=== PATIENT | male | born 1945 | race Caucasian/White ===

== ENCOUNTER 2022-05-09 06:38 | Inpatient (IN) | payer MEDICARE ==
--- NOTE | 2022-05-09 06:52 | ED ---
General Adult HPI - General Chief complaint: Neuro Symptoms/Deficit Stated complaint: Weakness Time Seen by Provider: 05/09/22 06:41 Source: patient, EMS Mode of arrival: EMS Limitations: no limitations - History of Present Illness Initial comments: 77 year-old male patient presents to ER via EMS after having a fall at home. Upon EMS arrival they reported left sided weakness and left sided facial droop that lasted about 5 minutes. He lives alone. Patient states he went to bed around 11pm and woke some time in the night. States he hit himself in the head with his left arm and "it didn't feel like my own". He stood up to go use the bathroom took two steps and fell. States he did hit his head. States he laid on the floor for about two hours before he was able to call [address] the call himself. He denies any loss of consciousness with the fall. Denies any blurred or double vision. He does report right sided headache with pain behind his right eye. Also reports chest pain. Denies any nausea, vomiting, shortness of breath, neck, or back pain. Denies any current numbness or tingling. Patient denies any recent rash, fever, chills, cough, abdominal pain, diarrhea, constipation, dizziness, hematuria, dysuria, urinary urgency, or urinary frequency. - Related Data Allergies Allergy/AdvReac Type Severity Reaction Status Date / Time shellfish derived [Shellfish] Allergy Unknown Verified 05/09/22 06:52 Review of Systems ROS Statement: Those systems with pertinent positive or pertinent negative responses have been documented in the HPI. ROS Other: All systems not noted in ROS Statement are negative. General Exam Limitations: no limitations General appearance: alert, in no apparent distress, other (This is a well- developed, well-nourished adult male patient.) Eye exam: Present: normal appearance, PERRL, EOMI. Absent: scleral icterus, conjunctival injection, periorbital swelling ENT exam: Present: normal exam, normal oropharynx, mucous membranes moist Respiratory exam: Present: normal lung sounds bilaterally. Absent: respiratory distress, wheezes, rales, rhonchi, stridor Cardiovascular Exam: Present: regular rate, normal rhythm, normal heart sounds. Absent: systolic murmur, diastolic murmur, rubs, gallop, clicks GI/Abdominal exam: Present: soft, normal bowel sounds. Absent: distended, tenderness, guarding, rebound, rigid Extremities exam: Present: full ROM, normal capillary refill, other (Left elbow skin tear, no active bleeding. Radial pulses 2+.). Absent: normal inspection, tenderness, pedal edema, joint swelling, calf tenderness Back exam: Present: normal inspection. Absent: vertebral tenderness Neurological exam: Present: alert, oriented X3, CN II-XII intact Expanded Speech: Present: fluid speech Cranial nerves: EOM's Intact: Normal, Nystagmus: Normal, Facial Sensation: Normal Upper motor neuron: Pronator Drift: Normal Sensory exam: Upper Extremity Light Touch: Normal, UE 2 Point Discrimination: Normal, Lower Extremity Light Touch: Normal Motor strength exam: RUE: 5, LUE: 5, RLE: 5, LLE: 5 Eye Response: (4) open spontaneously Motor Response: (6) obeys commands Verbal Response: (5) oriented Psychiatric exam: Present: normal affect, normal mood Skin exam: Present: warm, dry, intact, normal color. Absent: rash Course Vital Signs 05/09/22 05/09/22 05/09/22 06:41 07:15 07:58 Temperature 97.6 F 98.2 F Pulse Rate 70 71 70 Respiratory 18 16 16 Rate Blood Pressure 127/71 133/68 145/79 O2 Sat by Pulse 94 L 98 98 Oximetry EKG Findings - EKG Comments: EKG Findings:: EKG obtained at 0702 shows ventricular paced rhythm ventricular rate is 69, QRS duration 166, QTc 464, QTC 484. Medical Decision Making - Medical Decision Making 77-year-old male patient with known end-stage renal disease with dialysis presents for evaluation after a fall at home. Did have left-sided facial droop and left-sided weakness upon EMS arrival the last approximately 5 minutes. NIH score here is 0. He is also reporting chest pain. I did speak to Dr. House neurointerventionalist, patient is not candidate for TPA. CT brain and C-spine were negative, CT angios head neck negative for any acute occlusion but did show 50% stenosis of the carotid artery. Labs reviewed and did reveal hemoglobin 10.6, BUN 36, creatinine 4.5, calcium 7.7, troponin 0.71. EKG showed ventricular paced rhythm with a rate in the 70s. Chest x-ray did show interstitial edema. He did have a small skin tear to left elbow was given tetanus vaccination. I did discuss findings and results with him. He will be admitted for evaluation of TIA and chest pain. He is agreeable with this plan. My attending is Dr. Reyes. - Lab Data Result diagrams: 05/09/22 06:47 05/09/22 06:47 Lab Results 05/09/22 05/09/22 05/09/22 Range/Units 06:47 06:47 06:47 WBC 6.4 (3.8-10.6) k/uL RBC 3.36 L (4.30-5.90) m/uL Hgb 10.6 L (13.0-17.5) gm/dL Hct 33.6 L (39.0-53.0) % MCV 100.1 H (80.0-100.0) fL MCH 31.7 (25.0-35.0) pg MCHC 31.7 (31.0-37.0) g/dL RDW 14.4 (11.5-15.5) % Plt Count 256 (150-450) k/uL MPV 7.9 Neutrophils % 81 % Lymphocytes % 6 % Monocytes % 8 % Eosinophils % 3 % Basophils % 1 % Neutrophils # 5.1 (1.3-7.7) k/uL Lymphocytes # 0.4 L (1.0-4.8) k/uL Monocytes # 0.5 (0-1.0) k/uL Eosinophils # 0.2 (0-0.7) k/uL Basophils # 0.0 (0-0.2) k/uL Hypochromasia Moderate Macrocytosis Slight PT 11.2 (9.0-12.0) sec INR 1.0 (<1.2) APTT 25.1 (22.0-30.0) sec Sodium 136 L (137-145) mmol/L Potassium 5.1 (3.5-5.1) mmol/L Chloride 96 L (98-107) mmol/L Carbon Dioxide 24 (22-30) mmol/L Anion Gap 16 mmol/L BUN 36 H (9-20) mg/dL Creatinine 4.50 H (0.66-1.25) mg/dL Est GFR (CKD-EPI)AfAm 13 (>60 ml/min/1.73 sqM) Est GFR (CKD-EPI)NonAf 12 (>60 ml/min/1.73 sqM) Glucose 114 H (74-99) mg/dL Calcium 7.7 L (8.4-10.2) mg/dL Total Bilirubin 1.0 (0.2-1.3) mg/dL AST 27 (17-59) U/L ALT 17 (4-49) U/L Alkaline Phosphatase 340 H (38-126) U/L Creatine Kinase (55-170) U/L Troponin I (0.000-0.034) ng/mL Total Protein 7.0 (6.3-8.2) g/dL Albumin 3.6 (3.5-5.0) g/dL 05/09/22 05/09/22 Range/Units 06:47 06:52 WBC (3.8-10.6) k/uL RBC (4.30-5.90) m/uL Hgb (13.0-17.5) gm/dL Hct (39.0-53.0) % MCV (80.0-100.0) fL MCH (25.0-35.0) pg MCHC (31.0-37.0) g/dL RDW (11.5-15.5) % Plt Count (150-450) k/uL MPV Neutrophils % % Lymphocytes % % Monocytes % % Eosinophils % % Basophils % % Neutrophils # (1.3-7.7) k/uL Lymphocytes # (1.0-4.8) k/uL Monocytes # (0-1.0) k/uL Eosinophils # (0-0.7) k/uL Basophils # (0-0.2) k/uL Hypochromasia Macrocytosis PT (9.0-12.0) sec INR (<1.2) APTT (22.0-30.0) sec Sodium (137-145) mmol/L Potassium (3.5-5.1) mmol/L Chloride (98-107) mmol/L Carbon Dioxide (22-30) mmol/L Anion Gap mmol/L BUN (9-20) mg/dL Creatinine (0.66-1.25) mg/dL Est GFR (CKD-EPI)AfAm (>60 ml/min/1.73 sqM) Est GFR (CKD-EPI)NonAf (>60 ml/min/1.73 sqM) Glucose (74-99) mg/dL Calcium (8.4-10.2) mg/dL Total Bilirubin (0.2-1.3) mg/dL AST (17-59) U/L ALT (4-49) U/L Alkaline Phosphatase (38-126) U/L Creatine Kinase 83 (55-170) U/L Troponin I 0.721 H* (0.000-0.034) ng/mL Total Protein (6.3-8.2) g/dL Albumin (3.5-5.0) g/dL - Radiology Data Radiology results: report reviewed, image reviewed CT head and neck angiography were obtained report was reviewed in its entirety. Impression shows atheromatous changes present, degenerative disc changes present. Stenosis of 50% diameter reduction of the proximal internal carotid artery on the right. CT brain C-spine without contrast were also obtained. Report was reviewed in its entirety. Impression by Dr. Chapa shows multilevel cervical spondylotic changes. No fracture seen. Cervical atrophy. No acute intracranial abnormality. One view x-ray of the chest was obtained. Report was reviewed in its entirety. Impression by Dr. La shows findings suggest pulmonary venous hypertension and interstitial edema. Disposition Clinical Impression: TIA (transient ischemic attack), Chest pain, Fall Disposition: ADMITTED IP TO THIS [facility] Condition: Serious Referrals: Nonstaff,Physician [Primary Care Provider] - 1-2 days Decision to Admit Reason: Admit from EC Decision Date: 05/09/22 Decision Time: 08:10
[2022-05-09 06:58] LABS: Basophils % (A) 1 %; Eosinophils # (A) 0.2 k/uL (0-0.7); Eosinophils % (A) 3 %; HCT 33.6 % (39.0-53.0); HGB 10.6 gm/dL (13.0-17.5); Hypochromasia Moderate; Lymphocytes # (A) 0.4 k/uL (1.0-4.8); Lymphocytes % (A) 6 %; MCH 31.7 pg (25.0-35.0); MCHC 31.7 g/dL (31.0-37.0); MCV 100.1 fL (80.0-100.0); Macrocytosis Slight; Mean Platelet Volume 7.9; Monocytes # (A) 0.5 k/uL (0-1.0); Monocytes % (A) 8 %; Neutrophils # (A) 5.1 k/uL (1.3-7.7); Neutrophils % (A) 81 %; Platelet Count 256 k/uL (150-450); RBC 3.36 m/uL (4.30-5.90); RDW 14.4 % (11.5-15.5); WBC 6.4 k/uL (3.8-10.6)
[2022-05-09 07:08] LABS: Partial Thromboplastin Time 25.1 sec (22.0-30.0); Prothrombin Time 11.2 sec (9.0-12.0)
[2022-05-09 07:11] LABS: Albumin 3.6 g/dL (3.5-5.0); Calcium 7.7 mg/dL (8.4-10.2)
--- NOTE | 2022-05-09 07:11 | CT ---
EXAMINATION TYPE: CT brain thea wo con DATE OF EXAM: 05/09/2022 COMPARISON: None HISTORY: Code stroke and fall CT DLP: 1512.5 mGycm Automated exposure control for dose reduction was used. There is cerebral cortical atrophy. There is no mass effect or midline shift. No sign of intracranial hemorrhage. Calvarium is intact. There is normal aeration of the mastoid sinuses. The skull base is intact. There is degenerative disc space narrowing in the mid and lower cervical spine. No compression fractu re. There is multilevel mild cervical facet arthropathy. Prevertebral soft tissues are intact. The oc cipital bone is intact. IMPRESSION: Multilevel cervical spondylotic changes. No fracture seen. Cerebral atrophy. No acute intracranial abnormality.
--- NOTE | 2022-05-09 07:11 | XR ---
EXAMINATION TYPE: XR chest 1V DATE OF EXAM: 05/09/2022 COMPARISON: NONE HISTORY: Altered mental status, code stroke TECHNIQUE: Single frontal view of the chest is obtained. FINDINGS: The heart is enlarged. There is a generator in left pectoral region, leads in right atrium and ventricle, coronary sinus. Patient is rotated. No evident pneumothorax. Perihilar vascular indis tinctness is present, interstitium is increased. There are overlying leads, patient is status post TA VR procedure. IMPRESSION: Findings suggest pulmonary venous hypertension and interstitial edema.
[2022-05-09 07:21] LABS: Potassium 5.1 mmol/L (3.5-5.1)
--- NOTE | 2022-05-09 07:58 | CT ---
EXAMINATION TYPE: CT angio head neck DATE OF EXAM: 05/09/2022 HISTORY: Neuro deficits, code stroke COMPARISON: CT brain and cervical spine 05/09/2022 CT DLP: 681.3 mGycm. Automated Exposure Control for Dose Reduction was Utilized. TECHNIQUE: CTA scan of the head and neck is performed with IV Contrast, patient injected with 65 mL of Isovue 370, axial images are obtained, coronal and sagittal reformatted images are reviewed. 3D re constructed images are created on an independent workstation and reviewed. Automated exposure control for dose reduction. FINDINGS: Carotid/Vascular Structures: Patient is post TAVR procedure. Leads are again noted within the heart. The heart is enlarged. No evident pericardial effusion. Right hilar adenopathy is present. Atheromato us changes are present within the aorta. Therefore super aortic branch vessels. Left and right subcla vian, innominate, left and right vertebral arteries, left and right common carotid arteries are paten t.11 carotid bulb show atheromatous changes. Vertebral arteries are codominant. No significant stenos is the proximal internal carotid artery in the left. Hemodynamic significant stenosis approximated ap proximately 50% diameter reduction of the proximal internal carotid artery in the right. Anterior and posterior circulation is intact. There is no evident aneurysm, dissection, stenosis, or embolus. Cerebral vascular calcifications are present. Other: Degenerative disc changes are present in the visualized spine. IMPRESSION: Atheromatous changes are present as described NASCET criteria was used in interpretation of this exam?
[2022-05-09] MEDS ORDERED: DIPH,PERTUS(ACELL)TETVAC-LF 0.5 ML VIAL IM ONE (08:06)
[2022-05-09] MEDS ORDERED: NALOXONE 0.4 MG/ML 1 ML VIAL IV PRN (08:07)
[2022-05-09] MEDS: ASPIRIN 81 MG PO SCH (12:09)
[2022-05-09] MEDS: ATORVASTATIN 40 MG TAB PO SCH (12:09)
--- NOTE | 2022-05-09 12:25 | P.CRDCN ---
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 He recently moved to [place] and has been commuting for his follow-up appointments. He presented to the emergency room after sustaining a fall. He developed severe right-sided weakness and attempted to stand. He states he fell hitting his head and chest. No changes in speech and denies any confusion. He states he has had a complete resolution of symptoms except for some residual chest wall discomfort. DIAGNOSTICS: Lab data: WBC 6.4, hemoglobin 10.6, hematocrit 33.6, platelet 256, d-dimer 6.99, sodium 136, potassium 5.1, BUN 36, creatinine 4.5, AST 27, ALT 17, ALP 340, troponin 0.7, 0.6 PAST MEDICAL HISTORY: TAVR, permanent pacemaker, end-stage renal disease, on dialysis Wednesday REVIEW OF SYSTEMS: No fever or chills. No cough or expectoration. No diaphoresis. Patient denies headache, dizziness, blurred vision, double vision. Patient denies any stomach discomfort. No nausea, vomiting. No hematochezia. No hematemesis. Denies any black stools or blood in his stools. Denies dysuria or hematuria. No muscle weakness or numbness. Positive for chest wall discomfort. PHYSICAL EXAMINATION: This is a 77-year-old male in no apparent distress at the time of my examination. HEENT: Head is atraumatic, normocephalic. Neck is supple. There is no jugular venous distention. No carotid bruit is heard. CHEST EXAMINATION: Lungs are clear to auscultation. No chest wall tenderness is noted on palpation or with deep breathing. HEART EXAMINATION: Heart regular rate and rhythm. S1, S2 heard. No murmurs, gallops or rub. ABDOMEN: Soft, nontender. Bowel sounds are heard. No organomegaly noted. EXTREMITIES: 2+ peripheral pulses with no evidence of peripheral edema and no calf tenderness noted. NEUROLOGIC EXAMINATION: Patient is awake, alert and oriented x3. FINAL ASSESSMENT AND PLAN: TIA Status post mechanical fall Chest pain, likely musculoskeletal secondary to fall Elevated troponin, likely secondary to end-stage renal disease, downtrend Elevated d-dimer History of end-stage renal disease on dialysis History of TAVR History of biventricular pacemaker PLAN: Obtain home medication regimen Recommend low-dose aspirin and start statin therapy ER physician/attending physician to address elevated d-dimer Further recommendations based on clinical course I am dictating on behalf of Dr Mehdi Dunlap's history/physical and assessment/plan. Medications and Allergies Home Medications Medication Instructions Recorded Confirmed Type No Known Home Medications 05/09/22 05/09/22 History Allergies Allergy/AdvReac Type Severity Reaction Status Date / Time shellfish derived [Shellfish] Allergy Unknown Verified 05/09/22 11:13 Physical Exam Vitals: Vital Signs Temp Pulse Resp BP Pulse Ox 05/09/22 11:56 98 F 69 16 134/69 96 05/09/22 07:58 70 16 145/79 98 05/09/22 07:15 98.2 F 71 16 133/68 98 05/09/22 06:41 97.6 F 70 18 127/71 94 L Intake and Output 05/08/22 05/09/22 05/09/22 22:59 06:59 14:59 Other: Weight 80.603 kg Results 05/09/22 06:47 05/09/22 06:47 Cardiac Enzymes 05/09/22 05/09/22 05/09/22 Range/Units 06:47 06:47 11:08 AST 27 (17-59) U/L Troponin I 0.721 H* 0.698 H* (0.000-0.034) ng/mL Coagulation 05/09/22 Range/Units 06:47 PT 11.2 (9.0-12.0) sec APTT 25.1 (22.0-30.0) sec CBC 05/09/22 Range/Units 06:47 WBC 6.4 (3.8-10.6) k/uL RBC 3.36 L (4.30-5.90) m/uL Hgb 10.6 L (13.0-17.5) gm/dL Hct 33.6 L (39.0-53.0) % Plt Count 256 (150-450) k/uL Comprehensive Metabolic Panel 05/09/22 Range/Units 06:47 Sodium 136 L (137-145) mmol/L Potassium 5.1 (3.5-5.1) mmol/L Chloride 96 L (98-107) mmol/L Carbon Dioxide 24 (22-30) mmol/L BUN 36 H (9-20) mg/dL Creatinine 4.50 H (0.66-1.25) mg/dL Glucose 114 H (74-99) mg/dL Calcium 7.7 L (8.4-10.2) mg/dL AST 27 (17-59) U/L ALT 17 (4-49) U/L Alkaline Phosphatase 340 H (38-126) U/L Total Protein 7.0 (6.3-8.2) g/dL Albumin 3.6 (3.5-5.0) g/dL Current Medications Generic Name Dose Route Start Last Admin Trade Name Freq PRN Reason Stop Dose Admin Aspirin 81 mg 05/09/22 11:00 05/09/22 12:09 Aspirin 81 Mg PO 81 mg DAILY MU Administration Atorvastatin Calcium 40 mg 05/09/22 11:15 05/09/22 12:09 Atorvastatin 40 Mg Tab PO 40 mg DAILY MU Administration Heparin Sodium (Porcine) 5,000 unit 05/09/22 16:00 Heparin Sodium,Porcine/Pf 5,000 Unit/0.5 Ml Syringe SQ Q8HR MU Morphine Sulfate 4 mg 05/09/22 08:07 Morphine Sulfate 4 Mg/Ml Syringe IV Q4HR PRN Severe Pain (Scale 7 to 10) Naloxone HCl 0.2 mg 05/09/22 08:07 Naloxone 0.4 Mg/Ml 1 Ml Vial IV Q2M PRN Opioid Reversal Intake and Output 05/08/22 05/09/22 05/09/22 22:59 06:59 14:59 Other: Weight 80.603 kg 05/09/22 06:47 05/09/22 06:47
--- NOTE | 2022-05-09 13:56 | P.NPCON ---
History of Present Illness - Reason for Consult Consult date: 05/09/22 end stage renal disease - Chief Complaint ESRD HD MWF - History of Present Illness This is a 77-year-old male with ESRD on dialysis Wednesday at the [facility] to dialysis unit. Came in because of a fall and some transient weakness in his left side. He denies any dizziness when he fell this morning. Initially felt numbness in his left hand but not in his leg. He tried to walk to the bathroom and then felt he did not lose his consciousness. Yesterday he was dialyzed it does not remember how much fluid was taken off and he felt fine after dialysis yesterday Past history significant for transaortic valve replacement, history of hypertension. Usually he is able to walk on his own without any difficulty. He does not make any urine and he has a fistula in his right upper arm Medications and Allergies Home Medications Medication Instructions Recorded Confirmed Type No Known Home Medications 05/09/22 05/09/22 History Allergies Allergy/AdvReac Type Severity Reaction Status Date / Time shellfish derived [Shellfish] Allergy Unknown Verified 05/09/22 11:13 Physical Exam Vitals: Vital Signs Temp Pulse Resp BP Pulse Ox 05/09/22 11:56 98 F 69 16 134/69 96 05/09/22 07:58 70 16 145/79 98 05/09/22 07:15 98.2 F 71 16 133/68 98 05/09/22 06:41 97.6 F 70 18 127/71 94 L Intake and Output 05/08/22 05/09/22 05/09/22 22:59 06:59 14:59 Other: Weight 80.603 kg Currently on exam he is awake alert oriented comfortable HEENT exam no JVP neck is supple no facial asymmetry Lungs clear to auscultation good air entry bilaterally Heart sounds unremarkable for any murmur rub gallop Abdomen soft nontender Extreme exam was no edema Neurologically awake alert oriented no vocal motor signs is able to move all his extremities fairly well. Results - Lab Results Most recent lab results Calcium 7.7 mg/dL (8.4-10.2) L 05/09/22 06:47 05/09/22 06:47 05/09/22 06:47 Assessment and Plan Assessment: Impression 1. ESRD on dialysis Wednesday and Wednesday at [facility] unit. Fistula right upper arm 2. Admitted with fall and possible transient weakness on the left side. CTA of the head and computed tomography scan of the brain both are normal 3. Chest x-ray is suggestive congestive heart failure but patient is stable on room air 4. Anemia hemoglobin is 10.6 at target Recommendation 1. Will maintain his dialysis schedule next dialysis will be Wednesday. 2. Cause of his fall and transient weakness possible TIA. Neurology consult pending 3. Maintain blood pressure, currently stable Page for this consultation and continued to follow
[2022-05-09] MEDS: HEPARIN SODIUM,PORCINE/PF 5,000 UNIT/0.5 ML SYRINGE SQ SCH ×2 (15:09→23:19)
[2022-05-09 16:46] LABS: Chol/HDL Ratio 2.56 Ratio; LDL Cholesterol,Calculated 65.6 mg/dL (0.0-131.0); VLDL Calculation 15.42 mg/dL (5.00-40.00)
--- NOTE | 2022-05-09 16:48 | P.CNNES ---
History of Present Illness Consult date: 05/09/22 History of Present Illness: The patient is a 77-year-old male who is seen in neurologic consultation on May 09, 2022, via teleneurology. The patient reports that he attempted to get up from bed and fell to the floor. He says that he realized there was something wrong, before he actually got out of bed, because when he turned over in bed, he hit himself in the head with his left hand. He says that his left hand felt as if there was not his. The patie nt reports that when he went to bed he felt fine. Approximately one hour after going to bed, he attempted to get up from bed and fell to the floor. He says that he hit his head. There was no loss of consciousness. The patient reports that he felt a generalized weakness and was unable to get up from the floor. He reports that he was able to use the phone however because of what he felt was changes in his vision, he had difficulty seeing the phone. He reports being unable to get a hold of his son and so he called 911. He says that he was able to speak to the pyridine operator. The patient denies a history of stroke. He reported having similar symptoms following dialysis, in the past. The patient did have dialysis during the day, yesterday. The patient reports that he did not feel any worse than usual, following this dialysis session. Workup in the emergency department included a CT scan of the brain and CT angiogram of the head and neck. There is no evidence of acute infarct or he morrhage. There is no evidence of significant stenosis or large vessel occlusion. Past Medical History Past Medical History: Dialysis Past Surgical History: Pacemaker Additional Past Surgical History / Comment(s): TAVR Medications and Allergies Home Medications Medication Instructions Recorded Confirmed Type No Known Home Medications 05/09/22 05/09/22 History Allergies Allergy/AdvReac Type Severity Reaction Status Date / Time shellfish derived [Shellfish] Allergy Unknown Verified 05/09/22 11:13 Physical Examination - Vital Signs Vital Signs: Vital Signs Temp Pulse Resp BP Pulse Ox 05/09/22 11:56 98 F 69 16 134/69 96 05/09/22 07:58 70 16 145/79 98 05/09/22 07:15 98.2 F 71 16 133/68 98 05/09/22 06:41 97.6 F 70 18 127/71 94 L Intake and Output 05/08/22 05/09/22 05/09/22 22:59 06:59 14:59 Other: Weight 80.603 kg Gen.: The patient is reclining on the gurney in the emergency department. He is well-nourished, well-developed and in no acute distress. HEENT: Head is atraumatic, normocephalic. Fundus not visualized. There is no scleral icterus. Mucous membranes are dry. Neck: Supple without carotid bruits Heart: Regular rate and rhythm Extremities: Without edema Neurological examination Mental status: The patient is awake, alert and oriented 3. His speech is clear. There is no dysarthria or aphasia. Cranial nerves: Pupils are equal at 4 mm and reactive. Visual lovelace are full to confrontation. Extraocular movements are intact. There is no nystagmus. Facial sensation is intact. There is no facial asymmetry. Hearing is grossly intact. Uvula and palate are midline. Shoulder shrug is symmetric. Tongue protrudes midline. Motor: Strength is 5/5 throughout, with the exception of mild decrease in strength in the left upper extremity Sensation: There is decreased light touch to the left upper extremity. There is extinction involving the left lower extremity, with double simultaneous stimulation. Coordination: There is a mild tremor involving the left upper extremity. There is mild ataxia with left finger to nose testing Deep tendon reflexes: 2+/4+ in the bilateral upper extremities and the left knee. Right patellar reflex 1+/4+. Plantar responses are flexor on the right and extensor on the left. Gait: Not assessed Results - Laboratory Findings CBC and BMP: 05/09/22 06:47 05/09/22 06:47 Abnormal Lab Findings: Abnormal Labs 05/09/22 05/09/22 05/09/22 06:47 06:47 06:47 RBC 3.36 L Hgb 10.6 L Hct 33.6 L MCV 100.1 H Lymphocytes # 0.4 L D-Dimer Sodium 136 L Chloride 96 L BUN 36 H Creatinine 4.50 H Glucose 114 H Calcium 7.7 L Alkaline Phosphatase 340 H Troponin I 0.721 H* 05/09/22 05/09/22 06:47 11:08 RBC Hgb Hct MCV Lymphocytes # D-Dimer 6.99 H Sodium Chloride BUN Creatinine Glucose Calcium Alkaline Phosphatase Troponin I 0.698 H* - Diagnostic Findings Comments: I personally reviewed the images of the CT scan of the brain and CT angiogram of the head and neck Assessment and Plan Assessment: 1. The patient has some neurologic findings on examination that may be consistent with a right middle cerebral artery territory, lacunar infarct-reflex asymmetry, left-sided extinction, left-sided extensor plantar response 2. End-stage renal disease Plan: 1. MRI of the brain has been ordered, the patient does have a pacemaker however, this pacemaker may be MRI compatible and should be investigated 2. Stroke workup including 2-D echocardiogram, lipid panel, hemoglobin A1c, TSH, PT, OT and speech therapy consultations 3. High-dose statin should be initiated 4. Aspirin 81 mg for further stroke prophylaxis. If MRI is positive, would consider dual antiplatelet therapy Thank you for allowing us to participate in the care of this patient Time with Patient: Greater than 30 (spent 50 minutes examining patient, reviewing labs, imaging, documentation and preparing the note)
--- NOTE | 2022-05-09 17:18 | NM ---
INDICATION: Patient age:Male; 77 years old; Reason for study: Elevate D-dimer; Chest Pain; PHH. COMPARISON: Chest x-ray 05/09/2022. TECHNIQUE: The lung perfusion portion of the study was performed after intervenous injection of 5 mCi of technetium 99 MAA (macroaggregated albumin). The ventilatory portion of the study was performed u sing 36.3 mCi of DTPA aerosol and obtaining multiple images after single breath hold. FINDING: The initial flow demonstrates homogeneous flow to the right zones. There is decreased uptake within t he left lung with preserved perfusion at the periphery . Areas of decreased perfusion not entirely co nform to segmental anatomy. Ventilation portions of the exam demonstrates patchy areas of decreased uptake bilaterally which do n ot entirely conform to segmental anatomy. IMPRESSION: Low likelihood of pulmonary embolism. Areas of decreased perfusion and ventilatory uptake likely seco ndary to pulmonary hypertension and interstitial edema seen on same-day chest x-ray.
--- NOTE | 2022-05-09 21:46 | P.HPIM ---
History of Present Illness H&P Date: 05/09/22 Chief Complaint: Fall Patient is a 77-year-old male with a known history of ESRD on hemodialysis, history of aortic valve replacement no prior history of CVA [facility] fall at home. Patient states that he suddenly developed left-sided weakness and unable to stand while he was going to his bed and suddenly fell on the ground and hit his head. Patient states that she felt like blurry vision and unable to find his phone and call EMS. Patient was on the floor for about 2 hours before he was able to call 911. Patient states that he was having chest pain after the fall. No shortness of breath.. Denied any loss of consciousness with the fall. No complaints of nausea vomiting or abdominal pain. No recent illnesses. Patient did not miss any hemodialysis. No fever no chills. No cough or sputum production. Denies any dysuria or hematuria. Chest x-ray showed findings suggest pulmonary venous hypertension and interstitial edema. CT head and cervical spine showed multilevel cervical spondylitic changes. No fracture seen. Stable atrophy. No acute intracranial abnormality. CT angiogram of the head and neck showed atheromatous changes are present. EKG showed electronic ventricular paced rhythm. Laboratory data showed WBC 6.4 hemoglobin 10.6 and platelets 256 MCV 100.1 D-dimer level is 6.99 Sodium 136 4 potassium 5.1 chloride 96 BUN 36 and creatinine 4.5 Calcium 7.7 and AST 727 ALT 17 alk phos 340 Troponin 0.721, 0.698 and 0.687 TSH level is 6.55 Review of Systems Constitutional: Patient denies any fever or chills . Generalized weakness. Abdomen: Patient denied any nausea or vomiting or abd. pain Cardiovascular: Patient denies any chest pain or short of breath no palpitations. Respiratory: patient denied any cough . no sputum production. No shortness of breath Neurologic: Patient denied any numbness or tingling headache. Musculoskeletal: Patient denies any complaints of joint swelling or deformity. Skin: Negative Psychiatric: Negative Endocrine: No heat or cold intolerance. No recent weight gain. Genitourinary: No dysuria or hematuria. All other 14 point ROS negative except the above Medications and Allergies Home Medications Medication Instructions Recorded Confirmed Type No Known Home Medications 05/09/22 05/09/22 History Allergies Allergy/AdvReac Type Severity Reaction Status Date / Time shellfish derived [Shellfish] Allergy Unknown Verified 05/09/22 11:13 Physical Exam Vitals: Vital Signs Temp Pulse Resp BP Pulse Ox 05/09/22 07:58 70 16 145/79 98 05/09/22 07:15 98.2 F 71 16 133/68 98 05/09/22 06:41 97.6 F 70 18 127/71 94 L Intake and Output 05/08/22 05/09/22 05/09/22 22:59 06:59 14:59 Other: Weight 80.603 kg PHYSICAL EXAMINATION: Patient is lying in the bed comfortably, no acute distress, awake alert and oriented.. HEENT: Normocephalic. Neck is supple. Pupils reactive. Nostrils clear. Oral cavity is moist. Neck reveals no JVD, carotid bruits, or thyromegaly. CHEST EXAMINATION: Trachea is central. Symmetrical expansion. Lung lovelace clear to auscultation and percussion. Bibasilar diminished sounds. CARDIAC: Normal S1, S2 with no gallops. No murmurs ABDOMEN: Soft. Bowel sounds present. Nontender. No organomegaly. No abdominal bruits. Extremities: reveal no edema. No clubbing or cyanosis Neurologically awake, alert, oriented x3 with well-coordinated movements. No focal deficits noted Skin: No rash or skin lesions. Psychiatric: Coperative. Nonsuicidal, Musculoskeletal: No joint swelling or deformity. Normal range of motion. Results CBC & Chem 7: 05/09/22 06:47 05/09/22 06:47 Labs: Abnormal Lab Results - Last 24 Hours (Table) 05/09/22 05/09/22 05/09/22 Range/Units 06:47 06:47 06:47 RBC 3.36 L (4.30-5.90) m/uL Hgb 10.6 L (13.0-17.5) gm/dL Hct 33.6 L (39.0-53.0) % MCV 100.1 H (80.0-100.0) fL Lymphocytes # 0.4 L (1.0-4.8) k/uL D-Dimer (<0.60) mg/L FEU Sodium 136 L (137-145) mmol/L Chloride 96 L (98-107) mmol/L BUN 36 H (9-20) mg/dL Creatinine 4.50 H (0.66-1.25) mg/dL Glucose 114 H (74-99) mg/dL Calcium 7.7 L (8.4-10.2) mg/dL Alkaline Phosphatase 340 H (38-126) U/L Troponin I 0.721 H* (0.000-0.034) ng/mL 05/09/22 Range/Units 06:47 RBC (4.30-5.90) m/uL Hgb (13.0-17.5) gm/dL Hct (39.0-53.0) % MCV (80.0-100.0) fL Lymphocytes # (1.0-4.8) k/uL D-Dimer 6.99 H (<0.60) mg/L FEU Sodium (137-145) mmol/L Chloride (98-107) mmol/L BUN (9-20) mg/dL Creatinine (0.66-1.25) mg/dL Glucose (74-99) mg/dL Calcium (8.4-10.2) mg/dL Alkaline Phosphatase (38-126) U/L Troponin I (0.000-0.034) ng/mL Thrombosis Risk Factor Assmnt - DVT/VTE Prophylaxis DVT/VTE Prophylaxis: Pharmacologic Prophylaxis ordered Assessment and Plan Assessment: Left-sided weakness and sudden fall and hit his head. No loss of consciousness. No residual weakness. Possible TIA. ESRD on hemodialysis Wednesday and Wednesday Chest pain likely musculoskeletal after fall. History of TAVR History of pacemaker placement Elevated troponin level likely secondary to ESRD Elevated D-dimer level. Likely due to ESRD. VQ scan to rule out PE. Elevated TSH level. Follow-up free T4 level. GI and DVT prophylaxis Plan: Patient admitted on telemetry monitoring. Patient had CT head and CT angiogram of the head and neck was done. No acute intracranial process noted. Continue with aspirin and statins. Patient was seen by neurology and recommended stroke work-up including MRI of the brain, 2D echocardiogram, TSH B12 folate and A1c levels. VQ scan was ordered due to elevated troponin level and chronic kidney disease. Follow-up closely. Time with Patient: Greater than 30
[2022-05-10] MEDS: MORPHINE SULFATE 4 MG/ML SYRINGE IV PRN ×2 (00:42→09:15)
[2022-05-10 07:33] LABS: Calcium 7.8 mg/dL (8.4-10.2); Potassium 5.8 mmol/L (3.5-5.1)
[2022-05-10 07:38] LABS: Basophils % (A) 1 %; Eosinophils # (A) 0.3 k/uL (0-0.7); Eosinophils % (A) 5 %; HCT 30.9 % (39.0-53.0); HGB 9.9 gm/dL (13.0-17.5); Hypochromasia Slight; Lymphocytes # (A) 0.4 k/uL (1.0-4.8); Lymphocytes % (A) 8 %; MCH 31.4 pg (25.0-35.0); MCV 98.3 fL (80.0-100.0); Mean Platelet Volume 8.9; Monocytes # (A) 0.4 k/uL (0-1.0); Monocytes % (A) 8 %; Neutrophils # (A) 3.9 k/uL (1.3-7.7); Neutrophils % (A) 75 %; Platelet Count 266 k/uL (150-450); RBC 3.14 m/uL (4.30-5.90); RDW 14.8 % (11.5-15.5); WBC 5.3 k/uL (3.8-10.6)
[2022-05-10 07:48] LABS: T4, Free (Free Thyroxine) 1.44 ng/dL (0.78-2.19)
[2022-05-10] MEDS: ATORVASTATIN 40 MG TAB PO SCH (08:59)
[2022-05-10] MEDS: HEPARIN SODIUM,PORCINE/PF 5,000 UNIT/0.5 ML SYRINGE SQ SCH ×3 (08:59→23:28)
[2022-05-10] MEDS: ASPIRIN 81 MG PO SCH (08:59)
[2022-05-10] MEDS ORDERED: ACETAMINOPHEN TAB 325 MG TAB PO PRN (09:26)
--- NOTE | 2022-05-10 09:44 | P.PN ---
Subjective Progress Note Date: 05/10/22 Principal diagnosis: This is a 77-year-old male with ESRD on dialysis Wednesday at [facility] in. He was admitted because of fall and some transient wea kness in his left side possibly TIA, one day after dialysis. There was some associated dizziness. Postdialysis on Wednesday he was asymptomatic. He is known with a transaortic valve replacement, hypertension usually able to walk. Has a fistula in his right upper arm Admission chest x-rays suggestive heart failure but patient was on room air. This morning he is on room air comfortable. Does say that his left arm be slightly weaker than the right. No headache chest pain . No double vision. Patient has not tried to walk since admission Objective - Vital Signs Vital signs: Vital Signs Temp 98.3 F 05/10/22 08:56 Pulse 70 05/10/22 08:56 Resp 18 05/10/22 08:56 BP 150/75 05/10/22 08:56 Pulse Ox 98 05/10/22 08:56 FiO2 Intake & Output 05/09/22 05/10/22 05/10/22 18:59 06:59 18:59 Intake Total 485 Output Total 1 Balance -1 485 Weight 80.603 kg Intake: Oral 485 Output: Urine 1 Other: Voiding Method Toilet # Voids 2 Exam general awake alert oriented comfortable HEENT exam no facial asymmetry noted Lungs are clear to auscultation good air entry bilaterally Heart sounds unremarkable for any murmur rub gallop Abdomen soft nontender Extremity exam was no edema Neurologically awake alert oriented. No objective signs of weakness noted - Labs CBC & Chem 7: 05/10/22 06:44 05/10/22 06:44 Labs: Abnormal Lab Results - Last 24 Hours (Table) 05/09/22 05/09/22 05/09/22 Range/Units 06:47 06:52 11:08 RBC (4.30-5.90) m/uL Hgb (13.0-17.5) gm/dL Hct (39.0-53.0) % Lymphocytes # (1.0-4.8) k/uL D-Dimer 6.99 H (<0.60) mg/L FEU Sodium (137-145) mmol/L Potassium (3.5-5.1) mmol/L Chloride (98-107) mmol/L BUN (9-20) mg/dL Creatinine (0.66-1.25) mg/dL Calcium (8.4-10.2) mg/dL Troponin I 0.698 H* (0.000-0.034) ng/mL TSH 6.550 H (0.465-4.680) mIU/L 05/09/22 05/10/22 05/10/22 Range/Units 14:17 06:44 06:44 RBC 3.14 L (4.30-5.90) m/uL Hgb 9.9 L (13.0-17.5) gm/dL Hct 30.9 L (39.0-53.0) % Lymphocytes # 0.4 L (1.0-4.8) k/uL D-Dimer (<0.60) mg/L FEU Sodium 133 L (137-145) mmol/L Potassium 5.8 H (3.5-5.1) mmol/L Chloride 95 L (98-107) mmol/L BUN 52 H (9-20) mg/dL Creatinine 6.59 H (0.66-1.25) mg/dL Calcium 7.8 L (8.4-10.2) mg/dL Troponin I 0.687 H* (0.000-0.034) ng/mL TSH (0.465-4.680) mIU/L Assessment and Plan Assessment: Impression 1. ESRD on dialysis Wednesday and Wednesday at [facility] dialysis unit. Fi stula right upper arm 2. Admitted with fall and possible transient weakness on the left side. CTA of the head and computed tomography scan of the brain both are normal 3. Chest x-ray is suggestive congestive heart failure but patient is stable on room air 4. Anemia hemoglobin is 10.6 at target. Namenda are down to 9.9 this morning. 5. Mild hyperkalemia potassium is 5.8, secondary to ESRD Recommendation 1. Will maintain his dialysis schedule next dialysis will be Wednesday. 2. Cause of his fall and transient weakness possible TIA. Neurology consult pending 3. Maintain blood pressure, currently stable 4. Lokelma 10 gm 1 dose to improve potassium
[2022-05-10] MEDS ORDERED: SODIUM ZIRCONIUM CYCLOSILICATE 10 GM PACKET PO ONE (10:00)
--- NOTE | 2022-05-10 12:38 | P.PN ---
Subjective Progress Note Date: 05/10/22 The patient is a 77-year-old male who is currently admitted to the hospital for TIA. Cardiology was consulted for abnormal troponin and chest discomfort. Troponins were downtrending and it is likely that these are elevated secondary to his end-stage renal disease. The patient was interviewed and examined lying comfortably in bed. He says he does have an ache in the chest if he twists or moves the wrong way. He is breathing well overnight. No orthopnea. No dizziness or lightheadedness. GENERAL: Well-appearing, well-nourished and in no acute distress. NECK: Supple without JVD or thyromegaly. LUNGS: Breath sounds clear to auscultation bilaterally. Respiration equal and unlabored. No wheezes, rales or rhonchi. HEART: Regular rate and rhythm. Systolic ejection murmur. No rubs or gallops. S1 and S2 heard. EXTREMITIES: Normal range of motion, no edema. No clubbing or cyanosis. Peripheral pulses intact and strong. VITALS: Blood pressure 137/74, pulse 70, respiratory rate 16, SpO2 96% on room air, temp 97.3F TELEMETRY: Paced rhythm LABS: WBC 5.3, hemoglobin 9.9, hematocrit 30.9, platelet 266, sodium 133, potassium 5.8, BUN 52, creatinine 6.59 IMPRESSION: TIA Status post mechanical fall Chest discomfort, likely musculoskeletal secondary to fall Elevated troponin, down trend, likely secondary to end-stage renal disease Elevated d-dimer History of end-stage renal disease on dialysis History of TAVR History of biventricular pacemaker PLAN: Continue aspirin and statin Outpatient follow-up with primary paint supervisor in [facility] No further recommendations from the cardiac standpoint I am dictating on behalf of Dr Mehdi Dunlap's history/physical and assessment/plan. Objective - Vital Signs Vital signs: Vital Signs Temp 97.3 F L 05/10/22 12:11 Pulse 70 05/10/22 12:11 Resp 16 05/10/22 12:11 BP 137/74 05/10/22 12:11 Pulse Ox 96 05/10/22 12:11 FiO2 Intake & Output 05/09/22 05/10/22 05/10/22 18:59 06:59 18:59 Intake Total 485 Output Total 1 Balance -1 485 Weight 80.603 kg Intake: Oral 485 Output: Urine 1 Other: Voiding Method Toilet # Voids 2 - Labs CBC & Chem 7: 05/10/22 06:44 05/10/22 06:44 Labs: Abnormal Lab Results - Last 24 Hours (Table) 05/09/22 05/09/22 05/10/22 Range/Units 06:52 14:17 06:44 RBC 3.14 L (4.30-5.90) m/uL Hgb 9.9 L (13.0-17.5) gm/dL Hct 30.9 L (39.0-53.0) % Lymphocytes # 0.4 L (1.0-4.8) k/uL Sodium (137-145) mmol/L Potassium (3.5-5.1) mmol/L Chloride (98-107) mmol/L BUN (9-20) mg/dL Creatinine (0.66-1.25) mg/dL Calcium (8.4-10.2) mg/dL Troponin I 0.687 H* (0.000-0.034) ng/mL TSH 6.550 H (0.465-4.680) mIU/L 05/10/22 Range/Units 06:44 RBC (4.30-5.90) m/uL Hgb (13.0-17.5) gm/dL Hct (39.0-53.0) % Lymphocytes # (1.0-4.8) k/uL Sodium 133 L (137-145) mmol/L Potassium 5.8 H (3.5-5.1) mmol/L Chloride 95 L (98-107) mmol/L BUN 52 H (9-20) mg/dL Creatinine 6.59 H (0.66-1.25) mg/dL Calcium 7.8 L (8.4-10.2) mg/dL Troponin I (0.000-0.034) ng/mL TSH (0.465-4.680) mIU/L
--- NOTE | 2022-05-10 16:10 | P.PN ---
Subjective Progress Note Date: 05/10/22 The patient is a 77-year-old male who is seen in neurologic follow-up on May 10, 2022, via teleneurology. The patient reports sleeping poorly. He denies having breakfast this morning. He denies changes in his symptoms. May 09, 2022 The patient reports that he attempted to get up from bed and fell to the floor. He says that he realized there was something wrong, before he actually got out of bed, because when he turned over in bed, he hit himself in the head with his left hand. He says that his left hand felt as if there was not his. The patient reports that when he went to bed he felt fine. Approximately one hour after going to bed, he attempted to get up from bed and fell to the floor. He says that he hit his head. There was no loss of consciousness. The patient rep orts that he felt a generalized weakness and was unable to get up from the floor. He reports that he was able to use the phone however because of what he felt was changes in his vision, he had difficulty seeing the phone. He reports being unable to get a hold of his son and so he called 911. He says that he was able to speak to the head kiln operator. The patient denies a history of stroke. He reported having similar symptoms following dialysis, in the past. The patient did have dialysis during the day, yesterday. The patient reports that he did not feel any worse than usual, following this dialysis session. Workup in the emergency department included a CT scan of the brain and CT angiogram of the head and neck. There is no evidence of acute infarct or hemorrhage. There is no evidence of significant stenosis or large vessel occlusion. Objective - Vital Signs Vital signs: Vital Signs Temp 98.3 F 05/10/22 08:56 Pulse 70 05/10/22 08:56 Resp 18 05/10/22 08:56 BP 150/75 05/10/22 08:56 Pulse Ox 98 05/10/22 08:56 FiO2 Intake & Output 05/09/22 05/10/22 05/10/22 18:59 06:59 18:59 Intake Total 485 Output Total 1 Balance -1 485 Weight 80.603 kg Intake: Oral 485 Output: Urine 1 Other: Voiding Method Toilet # Voids 2 - Exam Gen.: The patient is sleeping in the bed. He is easily arousable. He is in no acute distress. HEENT: Head is atraumatic, normocephalic. Fundus not visualized. There is no scleral icterus. Mucous members are moist. Neurological examination Mental status: The patient is awake, alert and oriented 3. His speech is clear. There is no dysarthria or aphasia. Cranial nerves: Pupils are equal at 4 mm and reactive. Visual lovelace are full to confrontation. Extraocular movements are intact. There is no nystagmus. Facial sensation is intact. There is no facial asymmetry. Hearing is grossly intact. Uvula and palate are midline. Shoulder shrug is symmetric. Tongue protrudes midline. Motor: Strength is 5/5 in the right upper and lower extremities. Left upper extremity strength 3-4/5. Left lower extremity strength 5/5. Sensation: There is decreased light touch to the left upper extremity. There is extinction involving the left upper and lower extremities, with double simultaneous stimulation. Coordination: There is a mild tremor involving the left upper extremity. There is mild ataxia with left finger to nose testing Deep tendon reflexes: 2+/4+ in the bilateral upper extremities and the left knee. Right patellar reflex 1+/4+. Plantar responses are flexor on the right and extensor on the left. - Labs CBC & Chem 7: 05/10/22 06:44 05/10/22 06:44 Labs: Abnormal Lab Results - Last 24 Hours (Table) 05/09/22 05/09/22 05/09/22 Range/Units 06:47 06:52 11:08 RBC (4.30-5.90) m/uL Hgb (13.0-17.5) gm/dL Hct (39.0-53.0) % Lymphocytes # (1.0-4.8) k/uL D-Dimer 6.99 H (<0.60) mg/L FEU Sodium (137-145) mmol/L Potassium (3.5-5.1) mmol/L Chloride (98-107) mmol/L BUN (9-20) mg/dL Creatinine (0.66-1.25) mg/dL Calcium (8.4-10.2) mg/dL Troponin I 0.698 H* (0.000-0.034) ng/mL TSH 6.550 H (0.465-4.680) mIU/L 05/09/22 05/10/22 05/10/22 Range/Units 14:17 06:44 06:44 RBC 3.14 L (4.30-5.90) m/uL Hgb 9.9 L (13.0-17.5) gm/dL Hct 30.9 L (39.0-53.0) % Lymphocytes # 0.4 L (1.0-4.8) k/uL D-Dimer (<0.60) mg/L FEU Sodium 133 L (137-145) mmol/L Potassium 5.8 H (3.5-5.1) mmol/L Chloride 95 L (98-107) mmol/L BUN 52 H (9-20) mg/dL Creatinine 6.59 H (0.66-1.25) mg/dL Calcium 7.8 L (8.4-10.2) mg/dL Troponin I 0.687 H* (0.000-0.034) ng/mL TSH (0.465-4.680) mIU/L Assessment and Plan Assessment: 1. The patient has some neurologic findings on examination that may be consistent with a right middle cerebral artery territory, lacunar infarct-reflex asymmetry, left-sided extinction, left-sided extensor plantar response 2. End-stage renal disease Plan: 1. MRI of the brain has been ordered, the patient does have a pacemaker however, this pacemaker may be MRI compatible and should be investigated 2. Stroke workup including 2-D echocardiogram, lipid panel, hemoglobin A1c, TSH, PT, OT and speech therapy consultations 3. High-dose statin should be initiated 4. Aspirin 81 mg for further stroke prophylaxis. If MRI is positive, would consider dual antiplatelet therapy Thank you for allowing us to participate in the care of this patient Dr. Moreno will assume neurologic coverage of this patient as of May 11, 2022 Time with Patient: Less than 30 (Spent 15 minutes examining patient, reviewing labs, imaging, documentation and preparing a note)
--- NOTE | 2022-05-11 00:16 | P.PN ---
Subjective Progress Note Date: 05/10/22 Patient is a 77-year-old male with a known history of ESRD on hemodialysis, history of aortic valve replacement no prior history of CVA presents to ER status post fall at home. Patient states that he suddenly developed left-sided weakness and unable to stand while he was going to his bed and suddenly fell on the ground and hit his head. Patient states that she felt like blurry vision and unable to find his phone and call EMS. Patient was on the floor for about 2 hours before he was able to call 911. Patient states that he was having chest pain after the fall. No shortness of breath.. Denied any loss of consciousness with the fall. No complaints of nausea vomiting or abdominal pain. No recent illnesses. Patient did not miss any hemodialysis. No fever no chills. No cough or sputum production. Denies any dysuria or hematuria. Chest x-ray showed findings suggest pulmonary venous hypertension and interstitial edema. CT head and cervical spine showed multilevel cervical spondylitic changes. No fracture seen. Stable atrophy. No acute intracranial abnormality. CT angiogram of the head and neck showed atheromatous changes are present. EKG showed electronic ventricular paced rhythm. Laboratory data showed WBC 6.4 hemoglobin 10.6 and platelets 256 MCV 100.1 D-dimer level is 6.99 Sodium 136 4 potassium 5.1 chloride 96 BUN 36 and creatinine 4.5 Calcium 7.7 and AST 727 ALT 17 alk phos 340 Troponin 0.721, 0.698 and 0.687 TSH level is 6.55 05/10/2022 Patient is currently lying bed. Awake alert and oriented x3. Still complains of aching chest pain with movement. Breathing is also stable. Troponin trending down. No nausea vomiting abdominal pain or diarrhea. No dizziness or lightheadedness. Neurology is on board and plan for MRI but could not be done due to patient being on pacemaker. 2D echocardiogram pending. Laboratory pressure WBC 5.3 hemoglobin 9.9 and platelets 266 Sodium 133 potassium 5.8 chloride 95 BUN 52 and creatinine 6.59 and calcium 7.8 and free T4 level is 1.44. Nephrology, neurology and cardiology is on board. Hemodialysis on Wednesday. Current medications reviewed. Objective - Vital Signs Vital signs: Vital Signs Temp 97.3 F L 05/10/22 12:11 Pulse 70 05/10/22 14:00 Resp 16 05/10/22 14:00 BP 137/74 05/10/22 12:11 Pulse Ox 96 05/10/22 12:11 FiO2 Intake & Output 05/09/22 05/10/22 05/10/22 18:59 06:59 18:59 Intake Total 485 Output Total 1 Balance -1 485 Weight 80.603 kg Intake: Oral 485 Output: Urine 1 Other: Voiding Method Toilet Toilet # Voids 2 - Exam PHYSICAL EXAMINATION: Patient is lying in the bed comfortably, no acute distress, awake alert and oriented.. HEENT: Normocephalic. Neck is supple. Pupils reactive. Nostrils clear. Oral cavity is moist. Neck reveals no JVD, carotid bruits, or thyromegaly. CHEST EXAMINATION: Trachea is central. Symmetrical expansion. Lung lovelace clear to auscultation and percussion. Bibasilar diminished sounds. CARDIAC: Normal S1, S2 with no gallops. No murmurs ABDOMEN: Soft. Bowel sounds present. Nontender. No organomegaly. No abdominal bruits. Extremities: reveal no edema. No clubbing or cyanosis Neurologically awake, alert, oriented x3 with well-coordinated movements. No focal deficits noted Skin: No rash or skin lesions. Psychiatric: Coperative. Nonsuicidal, Musculoskeletal: No joint swelling or deformity. Normal range of motion. - Labs CBC & Chem 7: 05/10/22 06:44 05/10/22 06:44 Labs: Abnormal Lab Results - Last 24 Hours (Table) 05/09/22 05/10/22 05/10/22 Range/Units 06:52 06:44 06:44 RBC 3.14 L (4.30-5.90) m/uL Hgb 9.9 L (13.0-17.5) gm/dL Hct 30.9 L (39.0-53.0) % Lymphocytes # 0.4 L (1.0-4.8) k/uL Sodium 133 L (137-145) mmol/L Potassium 5.8 H (3.5-5.1) mmol/L Chloride 95 L (98-107) mmol/L BUN 52 H (9-20) mg/dL Creatinine 6.59 H (0.66-1.25) mg/dL Calcium 7.8 L (8.4-10.2) mg/dL TSH 6.550 H (0.465-4.680) mIU/L Assessment and Plan Assessment: Left-sided weakness and sudden fall and hit his head. No loss of consciousness. No residual weakness. Possible TIA. r/o acute CVA ESRD on hemodialysis Wednesday and Wednesday Chest pain likely musculoskeletal after fall. History of TAVR History of pacemaker placement Elevated troponin level likely secondary to ESRD Elevated D-dimer level. Likely due to ESRD. VQ scan to rule out PE. Elevated TSH level. Follow-up free T4 level. GI and DVT prophylaxis Plan: Patient admitted on telemetry monitoring. Patient had CT head and CT angiogram of the head and neck was done. No acute intracranial process noted. Continue with aspirin and statins. Patient was seen by neurology and recommended stroke work-up including MRI of th e brain, 2D echocardiogram, TSH B12 folate and A1c levels. VQ scan was ordered due to elevated troponin level and chronic kidney disease. VQ scan showed low probability for PE. MRI of the brain could not be done due to patient being placement. Follow-up closely. Time with Patient: Greater than 30
[2022-05-11] MEDS: MORPHINE SULFATE 4 MG/ML SYRINGE IV PRN (03:46)
[2022-05-11] MEDS: ASPIRIN 81 MG PO SCH (08:39)
[2022-05-11] MEDS: HEPARIN SODIUM,PORCINE/PF 5,000 UNIT/0.5 ML SYRINGE SQ SCH ×2 (08:39→17:00)
[2022-05-11] MEDS: ATORVASTATIN 40 MG TAB PO SCH (08:39)
[2022-05-11 11:21] LABS: Basophils # (A) 0.1 k/uL (0-0.2); Basophils % (A) 1 %; Eosinophils # (A) 0.1 k/uL (0-0.7); Eosinophils % (A) 1 %; HCT 31.4 % (39.0-53.0); HGB 9.8 gm/dL (13.0-17.5); Hypochromasia Slight; Lymphocytes # (A) 0.3 k/uL (1.0-4.8); Lymphocytes % (A) 4 %; MCH 30.7 pg (25.0-35.0); MCHC 31.2 g/dL (31.0-37.0); MCV 98.3 fL (80.0-100.0); Mean Platelet Volume 8.8; Monocytes # (A) 0.6 k/uL (0-1.0); Monocytes % (A) 8 %; Neutrophils # (A) 6.5 k/uL (1.3-7.7); Neutrophils % (A) 84 %; Platelet Count 309 k/uL (150-450); RBC 3.19 m/uL (4.30-5.90); RDW 14.6 % (11.5-15.5); WBC 7.7 k/uL (3.8-10.6)
[2022-05-11 11:44] LABS: Calcium 7.6 mg/dL (8.4-10.2)
[2022-05-11 11:51] LABS: Potassium 6.4 mmol/L (3.5-5.1)
--- NOTE | 2022-05-11 13:03 | P.PN ---
Subjective Patient is seen for follow-up for end-stage renal disease maintained on Wednesday schedule at the [facility]. Patient was admitted to the hospital with history of fall. Currently seen on hemodialysis and tolerating his treatment well. No significant complaints today. Left elbow pain seems to have resolved Objective - Vital Signs Vital signs: Vital Signs Temp 97.7 F 05/11/22 11:16 Pulse 70 05/11/22 11:16 Resp 16 05/11/22 11:16 BP 159/74 05/11/22 11:16 Pulse Ox 95 05/11/22 11:16 FiO2 Intake & Output 05/10/22 05/11/22 05/11/22 18:59 06:59 18:59 Intake Total 600 Balance 600 Intake: Oral 600 Other: Voiding Method Toilet Toilet Toilet # Voids 0 - Exam Awake, comfortable, not in any acute distress Examination of the heart S1 and S2 Examination lungs bilateral breath sounds are heard Abdomen is soft nontender Examination of lower extremities shows no significant edema 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 ESRD on dialysis Wednesday and Wednesday at [facility] dialysis unit. Fistula right upper arm 2. Admitted with fall and possible transient weakness on the left side. CTA of the head and computed tomography scan of the brain both are normal 3. Chest x-ray is suggestive congestive heart failure but patient is stable on room air 4. Anemia hemoglobin is 10.6 at target. Namenda are down to 9.9 this morning. 5. Hyperkalemia associated with ESRD . Status post [facility] yesterday. Currently being dialyzed Plan: Continue Wednesday schedule for hemodialysis Encourage increased oral intake and activity
--- NOTE | 2022-05-11 14:56 | P.PN ---
Subjective Progress Note Date: 05/11/22 Patient is a 77-year-old right-handed male came to the hospital after he fell off the bed. He was going to the bathroom, when he just went down, couldn't stand up, couldn't get up. Patient has history of ESRD, on hemodialysis. Objective - Vital Signs Vital signs: Vital Signs Temp 97.7 F 05/11/22 11:16 Pulse 70 05/11/22 11:16 Resp 16 05/11/22 11:16 BP 159/74 05/11/22 11:16 Pulse Ox 95 05/11/22 11:16 FiO2 Intake & Output 05/10/22 05/11/22 05/11/22 18:59 06:59 18:59 Intake Total 600 Balance 600 Intake: Oral 600 Other: Voiding Method Toilet Toilet Toilet # Voids 0 - Exam Patient is an elderly male, in no distress. Patient is keeping his eyes closed, but does wake up on calling his name and answers appropriately. He knows it is April and the year is , and that he is in the hospital on the step of the name. He thinks he is in [facility]. He knows name of the current president. Speech and language functions are normal. Patient can name and repeat very well. No aphasia or dysarthria. Attention, concentration and fund of knowledge is adequate. On cranial nerve examination, pupils are equal, round and reacting to light, visual lovelace reveal left homonymous hemianopia. Extraocular muscles are intact with no nystagmus. He has slight decrease gaze on the left, but does come to the left. Face is symmetric, tongue protrudes to the midline. Palatal elevation and sensation normal, hearing and shoulder shrug normal, facial sensation normal. On muscle strength testing, there is mild left pronation, but no drift. He has some myoclonic jerking of his left arm with outstretched hands. Muscle strength showed patient has chronically weak right shoulder. The biceps and triceps are equal bilaterally, guest services officer is slightly decreased 5-only on the left. Normal on the right. Hip flexion is 4, ankles 5 bilaterally. Deep tendon reflexes are symmetric 1-1+. Patient has Babinski on the left side. Sensory to touch is equal. He is occasionally detects left side on double simultaneous stimulation. Cerebellar function showed no ataxia for [id number] testing on the right. He has significant past pointing on the left hand for testing the finger, but was able to touch the nose without difficulty. This is likely due to left homonymous hemianopia. Tone and bulk of muscles normal. Gait deferred.. On general examination, there is no carotid bruit or murmur, S1-S2 audible. Chest is clear on consultation. Abdomen is soft nontender. No organomegaly, bowel sounds present. Peripheral pulses are not clearly present. Mild peripheral edema. - Labs CBC & Chem 7: 05/11/22 10:00 05/11/22 10:00 Labs: Abnormal Lab Results - Last 24 Hours (Table) 05/11/22 05/11/22 Range/Units 10: 10:00 RBC 3.19 L (4.30-5.90) m/uL Hgb 9.8 L (13.0-17.5) gm/dL Hct 31.4 L (39.0-53.0) % Lymphocytes # 0.3 L (1.0-4.8) k/uL Sodium 129 L (137-145) mmol/L Potassium 6.4 H* (3.5-5.1) mmol/L Chloride 91 L (98-107) mmol/L Carbon Dioxide 19 L (22-30) mmol/L BUN 68 H (9-20) mg/dL Creatinine 7.94 H* (0.66-1.25) mg/dL Glucose 104 H (74-99) mg/dL Calcium 7.6 L (8.4-10.2) mg/dL Assessment and Plan Assessment: 1. Probable acute ischemic stroke with left homonymous hemianopia and very mild left-sided deficits 2. End-stage renal disease, on hemodialysis for last 3 years 3. Pacemaker 4. History of TAVR, October 2021. Patient was prescribed some blood thinners after TAVR, which after he ran out, didn't renew the medication, as he used to bleed a lot after hemodialysis, as per his statement. 5. Hypertension 6. X tobacco use. Patient smoked 1 pack per day for 20 years, quit 45 years ago. Plan: 1. MRI of the brain cannot be performed because patient has pacemaker. Agree with checking repeat CT head. 2. 2-D echocardiogram completed, but the results still pending 2. Hemoglobin A1c 5.5, TSH 6.55 mildly elevated, will defer to IM. 3. PT, OT and speech therapy consultations 3. Lipid panel with cholesterol 133, LDL 65, HDL 52 and triglycerides 77. Continue Lipitor 40 mg daily. 4. Aspirin 81 mg for further stroke prophylaxis has been initiated. If repeat CT/MRI is positive, would consider dual antiplatelet therapy. Patient states that he was not taking any antiplatelet medication at home.
--- NOTE | 2022-05-11 16:01 | CT ---
EXAMINATION TYPE: CT brain wo con DATE OF EXAM: 05/11/2022 HISTORY: f/u TIA CT DLP: 1231.4 mGycm. Automated Exposure Control for Dose Reduction was Utilized. TECHNIQUE: CT scan of the head is performed without contrast. COMPARISON: CT Brain Without 2 days ago. FINDINGS: There is no acute intracranial hemorrhage or midline shift identified. There is moderate diffuse ventricular and sulcal prominence consistent with diffuse age-related cerebral atrophy. Hyde- white matter differentiation is fairly well maintained. Nasal septum redemonstrated deviated to righ t of midline. The globes are intact and the visualized sinuses are clear. IMPRESSION: No acute intracranial hemorrhage or midline shift. There is moderate diffuse age-relate d cerebral atrophy redemonstrated. No significant change from prior CT.
--- NOTE | 2022-05-11 17:39 | CA ---
Transthoracic Echo Report Name: Reg Juares Age: 77 Gender: M : 1945 Exam Date: 05/11/2022 09:06 Exam Location: [place] [facility] Ht (in): 70 Wt (lb): 177 Ordering Physician: Sanaz Shaffer DO Attending/Referring Phys: Date Pitter Aniya Banuelos RDCS Procedure CPT: Indications: CVA Cardiac Hx: Technical Quality: Fair Contrast 1: Total Dose (mL): Contrast 2: Total Dose (mL): MEASUREMENTS (Male / Female) Normal Values 2D ECHO LV Diastolic Diameter PLAX 4.9 cm 4.2 - 5.9 / 3.9 - 5.3 cm LV Systolic Diameter PLAX 4.5 cm IVS Diastolic Thickness 1.4 cm 0.6 - 1.0 / 0.6 - 0.9 cm LVPW Diastolic Thickness 1.6 cm 0.6 - 1.0 / 0.6 - 0.9 cm LV Relative Wall Thickness 0.6 RV Internal Dim ED PLAX 5.5 cm LA Volume 97.2 cm??? 18 - 58 / 22 - 52 cm??? M-MODE Aortic Root Diameter MM 3.2 cm LA Systolic Diameter MM 5.6 cm LA Ao Ratio MM 1.8 DOPPLER AV Peak Velocity 252.1 cm/s AV Peak Gradient 25.4 mmHg AV Mean Velocity 156.5 cm/s AV Mean Gradient 11.5 mmHg AV Velocity Time Integral 38.1 cm LVOT Peak Velocity 66.8 cm/s LVOT Peak Gradient 1.8 mmHg MV Area PHT 4.2 cm??? Mitral E Point Velocity 123.9 cm/s Mitral A Point Velocity 82.0 cm/s Mitral E to A Ratio 1.5 MV Deceleration Time 179.9 ms TR Peak Velocity 413.6 cm/s TR Peak Gradient 68.4 mmHg Right Ventricular Systolic Press 56.1 mmHg FINDINGS Left Ventricle Mildly increased septal wall thickness. Moderately reduced global left ventricular systolic function. Left ventricular ejection fraction is estimated at 30-35 %. Right Ventricle Severe right ventricular dilatation. Severe pulmonary hypertension. Right Atrium Moderate right atrial dilatation. Catheter/pacemaker wire in the right atrial cavity. Left Atrium Severe left atrial dilatation. Mitral Valve Moderate mitral regurgitation. Moderate mitral annular calcification. Mitral valve thickened. Aortic Valve Normally functioning bioprosthetic aortic valve without stenosis with a peak velocity of 2.5 m/s, peak gradient 25 mmHg, mean gradient 12 mmHg. S/P TAVR. Tricuspid Valve Severe tricuspid regurgitation. Pulmonic Valve Trace pulmonic regurgitation. Pericardium No pericardial effusion. Aorta Normal size aortic root and proximal ascending aorta. CONCLUSIONS Technically somewhat difficult study. Janna LV size is at upper limits of normal with concentric LVH and global decrease in contractility estimated ejection fraction about 30-35%. Patient appears to be in atrial fibrillation. There is mitral annular calcification with moderate eccentric mitral regurgitation. Aortic valve bioprosthesis apparently patient had a percutaneous impart mild increase in gradient of about 25 mmHg peak gradient no pericardial effusion Previewed by: Dr. Lior Roldan MD (Electronically Signed) Final Date: 11 May 2022 17:38
[2022-05-12] MEDS: HEPARIN SODIUM,PORCINE/PF 5,000 UNIT/0.5 ML SYRINGE SQ SCH ×3 (00:13→17:33)
[2022-05-12] MEDS: MORPHINE SULFATE 4 MG/ML SYRINGE IV PRN ×3 (00:13→20:43)
--- NOTE | 2022-05-12 01:56 | P.PN ---
Subjective Progress Note Date: 05/11/22 Patient is a 77-year-old male with a known history of ESRD on hemodialysis, history of aortic valve replacement no prior history of CVA presents to ER status post fall at home. Patient states that he suddenly developed left-sided weakness and unable to stand while he was going to his bed and suddenly fell on the ground and hit his head. Patient states that she felt like blurry vision and unable to find his phone and call EMS. Patient was on the floor for about 2 hours before he was able to call 911. Patient states that he was having chest pain after the fall. No shortness of breath.. Denied any loss of consciousness with the fall. No complaints of nausea vomiting or abdominal pain. No recent illnesses. Patient did not miss any hemodialysis. No fever no chills. No cough or sputum production. Denies any dysuria or hematuria. Chest x-ray showed findings suggest pulmonary venous hypertension and interstitial edema. CT head and cervical spine showed multilevel cervical spondylitic changes. No fracture seen. Stable atrophy. No acute intracranial abnormality. CT angiogram of the head and neck showed atheromatous changes are present. EKG showed electronic ventricular paced rhythm. Laboratory data showed WBC 6.4 hemoglobin 10.6 and platelets 256 MCV 100.1 D-dimer level is 6.99 Sodium 136 4 potassium 5.1 chloride 96 BUN 36 and creatinine 4.5 Calcium 7.7 and AST 727 ALT 17 alk phos 340 Troponin 0.721, 0.698 and 0.687 TSH level is 6.55 05/10/2022 Patient is currently lying bed. Awake alert and oriented x3. Still complains of aching chest pain with movement. Breathing is also stable. Troponin trending down. No nausea vomiting abdominal pain or diarrhea. No dizziness or lightheadedness. Neurology is on board and plan for MRI but could not be done due to patient giovanni arizmendi on pacemaker. 2D echocardiogram pending. Laboratory pressure WBC 5.3 hemoglobin 9.9 and platelets 266 Sodium 133 potassium 5.8 chloride 95 BUN 52 and creatinine 6.59 and calcium 7.8 and free T4 level is 1.44. Nephrology, neurology and cardiology is on board. Hemodialysis on Wednesday. Current medications reviewed. 05/11/2022 Patient is seen and evaluated in follow-up this morning currently awaiting MRI and questionable is pacer safe for MRI otherwise reordering CT of the brain. Patient did have low-grade temps today per nursing staff. Patient is end-stage renal disease maintained on hemodialysis with nephrology following. Currently awaiting 2-D echo along with a.m. labs. Patient reports having some deficits with the upper extremities and continues to feel weak. Patient did have low g rade 100.1 and denies any chest pain or shortness of breath. Patient denies nausea or vomiting and tolerating diet. PT/OT evaluation. Review of systems: Constitutional: No reports of fatigue, fever, or chills Cardiovascular: No reports of chest pain or palpitations Respiratory: No reports of shortness of breath or cough GI: No reports of nausea, vomiting, or diarrhea : No reports of dysuria or retention Neurovascular: reports of some upper extremity weakness and some visual disturbance All medications have been reviewed Active Medications Acetaminophen (Acetaminophen Tab 325 Mg Tab) 325 mg PO Q6HR PRN PRN Reason: Fever and/ or Pain Aspirin (Aspirin 81 Mg) 81 mg PO DAILY [facility] Last Admin: 05/11/22 08:39 Dose: 81 mg Atorvastatin Calcium (Atorvastatin 40 Mg Tab) 40 mg PO DAILY [facility] Last Admin: 05/11/22 08:39 Dose: 40 mg Heparin Sodium (Porcine) (Heparin Sodium,Porcine/Pf 5,000 Unit/0.5 Ml Syringe) 5,000 unit SQ Q8HR [facility] Last Admin: 05/11/22 08:39 Dose: 5,000 unit Morphine Sulfate (Morphine Sulfate 4 Mg/Ml Syringe) 4 mg IV Q4HR PRN PRN Reason: Severe Pain (Scale 7 to 10) Last Admin: 05/11/22 03:46 Dose: 4 mg Naloxone HCl (Naloxone 0.4 Mg/Ml 1 Ml Vial) 0.2 mg IV Q2M PRN PRN Reason: Opioid Reversal Physical exam: Patient is lying in the bed, awake alert and oriented.. well developed, well nourished HEENT: Normocephalic. Neck is supple. Pupils reactive. Nostrils clear. Oral cavity is moist. Neck reveals no JVD, carotid bruits, or thyromegaly. CHEST EXAMINATION: Trachea is central. Symmetrical expansion. Bibasilar dimini shed sounds. CARDIAC: S1, S2 muffled ABDOMEN: Soft. Bowel sounds present. Nontender. No organomegaly. No abdominal bruits. Extremities: reveal no edema. No clubbing or cyanosis Neurologically awake, alert, oriented x3 with well-coordinated movements. No focal deficits noted Skin: No rash or skin lesions. Psychiatric: Cooperative. Non-suicidal, Musculoskeletal: No joint swelling or deformity. Normal range of motion. Assessment: Left-sided weakness and sudden fall and hit his head. No loss of consciousness. No residual weakness. Possible TIA. r/o acute CVA ESRD on hemodialysis Wednesday and Wednesday Chest pain likely musculoskeletal after fall. History of TAVR History of pacemaker placement Elevated troponin level likely secondary to ESRD Elevated D-dimer level. Likely due to ESRD. VQ scan to rule out PE. Elevated TSH level. GI and DVT prophylaxis Full code Plan: Patient admitted on telemetry monitoring. Patient had CT head and CT angiogram of the head and neck was done. No acute intracranial process noted. Continue with aspirin and statins. Patient was seen by neurology and recommended stroke work-up including MRI of the brain, 2D echocardiogram, TSH B12 folate and A1c levels. MRI unable due to pacemaker and repeat ct brain ordered and pending. VQ scan was ordered due to elevated troponin level and chronic kidney disease. VQ scan showed low probability for PE. Will discuss further with neurology about treatment plan. Possible discharge in 24-48 hours. Due to multiple complex medical issues, prognosis is guarded. The impression and plan of care has been dictated by Marta Nunn, Nurse Practitioner as directed. Dr. Rashawn MD I have performed a history and examination and MDM of this patient, discussed the same with the dictator, and agree with the dictator's assessment and plan as written ,documented as a scribe. Based on total visit time, I have performed more than 50% of the visit. Objective - Vital Signs Vital signs: Vital Signs Temp 98.0 F 05/11/22 16:45 Pulse 70 05/11/22 16:45 Resp 19 05/11/22 16:45 BP 148/73 05/11/22 16:45 Pulse Ox 95 05/11/22 11:16 FiO2 Intake & Output 05/10/22 05/11/22 05/11/22 18:59 06:59 18:59 Intake Total 600 300 Output Total 2500 Balance 600 -2200 Intake: Oral 600 Hemodialysis 300 Output: Hemodialysis 2500 Other: Voiding Method Toilet Toilet Toilet # Voids 0 - Labs CBC & Chem 7: 10/17/22 10:00 05/11/22 10:00 Labs: Abnormal Lab Results - Last 24 Hours (Table) 05/11/22 05/11/22 Range/Units 10:00 10:00 RBC 3.19 L (4.30-5.90) m/uL Hgb 9.8 L (13.0-17.5) gm/dL Hct 31.4 L (39.0-53.0) % Lymphocytes # 0.3 L (1.0-4.8) k/uL Sodium 129 L (137-145) mmol/L Potassium 6.4 H* (3.5-5.1) mmol/L Chloride 91 L (98-107) mmol/L Carbon Dioxide 19 L (22-30) mmol/L BUN 68 H (9-20) mg/dL Creatinine 7.94 H* (0.66-1.25) mg/dL Glucose 104 H (74-99) mg/dL Calcium 7.6 L (8.4-10.2) mg/dL
[2022-05-12] MEDS: ATORVASTATIN 40 MG TAB PO SCH (08:18)
[2022-05-12] MEDS: ASPIRIN 81 MG PO SCH (08:18)
[2022-05-12 08:46] LABS: Calcium 7.8 mg/dL (8.4-10.2); Potassium 5.8 mmol/L (3.5-5.1)
[2022-05-12] MEDS: CLOPIDOGREL 75 MG TAB PO SCH (10:09)
--- NOTE | 2022-05-12 11:41 | P.PN ---
Subjective Patient is seen for follow-up for end-stage renal disease maintained on Wednesday schedule at the [facility] unit. Patient was admitted to the hospital with history of fall. Tolerated hemodialysis well No significant complaints today. Objective - Vital Signs Vital signs: Vital Signs Temp 98.9 F 05/12/22 08:13 Pulse 70 05/12/22 08:13 Resp 16 05/12/22 08:13 BP 120/59 05/12/22 08:13 Pulse Ox 95 05/12/22 08:13 FiO2 Intake & Output 05/11/22 05/12/22 05/12/22 18:59 06:59 18:59 Intake Total 300 Output Total 2500 Balance -2200 Intake: Hemodialysis 300 Output: Hemodialysis 2500 Other: Voiding Method Toilet Toilet Toilet # Voids 0 - Exam Awake, comfortable, not in any acute distress Examination of the heart S1 and S2 Examination lungs bilateral breath sounds are heard Abdomen is soft nontender Examination of lower extremities shows no significant edema FILE KEEPER exam grossly intact - Labs CBC & Chem 7: 05/11/22 10:00 05/12/22 08:16 Labs: Abnormal Lab Results - Last 24 Hours (Table) 05/11/22 05/12/22 Range/Units 10:00 08:16 Sodium 129 L 132 L (137-145) mmol/L Potassium 6.4 H* 5.8 H (3.5-5.1) mmol/L Chloride 91 L 93 L (98-107) mmol/L Carbon Dioxide 19 L 19 L (22-30) mmol/L BUN 68 H 55 H (9-20) mg/dL Creatinine 7.94 H* 7.15 H* (0.66-1.25) mg/dL Glucose 104 H (74-99) mg/dL Calcium 7.6 L 7.8 L (8.4-10.2) mg/dL Assessment and Plan Assessment: 1. ESRD on dialysis Wednesday and Wednesday at [facility] dialysis unit. Fistula right upper arm 2. Admitted with fall and possible transient weakness on the left side. CTA of the head and computed tomography scan of the brain both are normal 3. Chest x-ray is suggestive congestive heart failure but patient is stable on room air 4. Anemia hemoglobin is 10.6 at target. 9.8 on 05/11/2022 5. Hyperkalemia associated with ESRD. Potassium has been staying high. I will repeat her dose of lokelma and we will arrange for hemodialysis in a.m. Plan: lokelma by mouth 1 Hemodialysis in a.m. Physical therapy
[2022-05-12] MEDS ORDERED: SODIUM ZIRCONIUM CYCLOSILICATE 10 GM PACKET PO ONE (11:42)
[2022-05-12] MEDS: HYDROCORTISONE 1% CREAM 454 GM JAR TOPICAL SCH ×2 (17:34→20:40)
[2022-05-13] MEDS: HYDROCORTISONE 1% CREAM 454 GM JAR TOPICAL SCH ×5 (00:20→20:37)
[2022-05-13] MEDS: HEPARIN SODIUM,PORCINE/PF 5,000 UNIT/0.5 ML SYRINGE SQ SCH ×4 (01:59→23:35)
--- NOTE | 2022-05-13 05:29 | P.PN ---
Subjective Progress Note Date: 05/12/22 Patient is a 77-year-old male with a known history of ESRD on hemodialysis, history of aortic valve replacement no prior history of CVA presents to ER status post fall at home. Patient states that he suddenly developed left-sided weakness and unable to stand while he was going to his bed and suddenly fell on the ground and hit his head. Patient states that she felt like blurry vision and unable to find his phone and call EMS. Patient was on the floor for about 2 hours before he was able to call 911. Patient states that he was having chest pain after the fall. No shortness of breath.. Denied any loss of consciousness with the fall. No complaints of nausea vomiting or abdominal pain. No recent illnesses. Patient did not miss any hemodialysis. No fever no chills. No cough or sputum production. Denies any dysuria or hematuria. Chest x-ray showed findings suggest pulmonary venous hypertension and interstitial edema. CT head and cervical spine showed multilevel cervical spondylitic changes. No fracture seen. Stable atrophy. No acute intracranial abnormality. CT angiogram of the head and neck showed atheromatous changes are present. EKG showed electronic ventricular paced rhythm. Laboratory data showed WBC 6.4 hemoglobin 10.6 and platelets 256 MCV 100.1 D-dimer level is 6.99 Sodium 136 4 potassium 5.1 chloride 96 BUN 36 and creatinine 4.5 Calcium 7.7 and AST 727 ALT 17 alk phos 340 Troponin 0.721, 0.698 and 0.687 TSH level is 6.55 05/10/2022 Patient is currently lying bed. Awake alert and oriented x3. Still complains of aching chest pain with movement. Breathing is also stable. Troponin trending down. No nausea vomiting abdominal pain or diarrhea. No dizziness or lightheadedness. Neurology is on board and plan for MRI but could not be done due to patient giovanni arizmendi on pacemaker. 2D echocardiogram pending. Laboratory pressure WBC 5.3 hemoglobin 9.9 and platelets 266 Sodium 133 potassium 5.8 chloride 95 BUN 52 and creatinine 6.59 and calcium 7.8 and free T4 level is 1.44. Nephrology, neurology and cardiology is on board. Hemodialysis on Wednesday. Current medications reviewed. 05/11/2022 Patient is seen and evaluated in follow-up this morning currently awaiting MRI and questionable is pacer safe for MRI otherwise reordering CT of the brain. Patient did have low-grade temps today per nursing staff. Patient is end-stage renal disease maintained on hemodialysis with nephrology following. Currently awaiting 2-D echo along with a.m. labs. Patient reports having some deficits with the upper extremities and continues to feel weak. Patient did have low g rade 100.1 and denies any chest pain or shortness of breath. Patient denies nausea or vomiting and tolerating diet. PT/OT evaluation. 05/12/2022 Patient seen today and is post ct brain which shows some vague hypodensity right temporal occipital region that could reflect an evolving infarct. Patient is maintained on hemodialysis. Patient continues with significant weakness and reports he is unstable to walk. PT/OT following and recommend ecf for rehab. Patient is agreeable. Case management following and working on possible ECF. Patient is afebrile and denies chest pain or shortness of breath. No reports of nausea or vomiting and tolerating diet. Potassium is elevated today and given a dose of lokelma with hemodialysis scheduled for am. Review of systems: Constitutional: No reports of fatigue, fever, or chills Cardiovascular: No reports of chest pain or palpitations Respiratory: No reports of shortness of breath or cough GI: No reports of nausea, vomiting, or diarrhea : No reports of dysuria or retention Neurovascular: reports of some weakness and inability to walk steadily All medications have been reviewed Physical exam: Patient is lying in the bed, awake alert and oriented.. well developed, well nourished HEENT: Normocephalic. Neck is supple. Pupils reactive. Nostrils clear. Oral cavity is moist. Neck reveals no JVD, carotid bruits, or thyromegaly. CHEST EXAMINATION: Trachea is central. Symmetrical expansion. Bibasilar diminished sounds. CARDIAC: S1, S2 muffled ABDOMEN: Soft. Bowel sounds present. Nontender. No organomegaly. No abdominal bruits. Extremities: reveal no edema. No clubbing or cyanosis Neurologically awake, alert, oriented x3 with well-coordinated movements. No focal deficits noted Skin: No rash or skin lesions. Psychiatric: Cooperative. Non-suicidal, Musculoskeletal: No joint swelling or deformity. Normal range of motion. Assessment: Left-sided weakness and sudden fall and hit his head. No loss of consciousness. No residual weakness. LIkely acute CVA right temporal occipital region as noted on repeat CT 05-11-2022 ESRD on hemodialysis Wednesday and Wednesday Chest pain likely musculoskeletal after fall. History of TAVR History of pacemaker placement Elevated troponin level likely secondary to ESRD Elevated D-dimer level. Likely due to ESRD. VQ scan shows low probability of PE. Elevated TSH level. GI and DVT prophylaxis Full code Plan: Patient admitted on telemetry monitoring. Patient had CT head and CT angiogram of the head and neck was done. No acute intracranial process noted initially. Unable to have MRI due to pacemaker and repeat CT brain done on 05-11 which is suggestive of right temporal occipital region evolving infarct . Continue with statins. Neurology following. Will discuss further with neurology about treatment plan. Case management following and working on possible ecf Potassium elevated today and given a dose of lokelma and scheduled for hemodialysis in am. Possible discharge in 24-48 hours. Due to multiple complex medical issues, prognosis is guarded. The impression and plan of care has been dictated by Marta Nunn, Nurse Practitioner as directed. Dr. Rashawn MD I have performed a history and examination and MDM of this patient, discussed the same with the dictator, and agree with the dictator's assessment and plan as written ,documented as a scribe. Based on total visit time, I have performed more than 50% of the visit. Objective - Vital Signs Vital signs: Vital Signs Temp 98.1 F 05/12/22 12:00 Pulse 70 05/12/22 12:00 Resp 16 05/12/22 12:00 BP 131/62 05/12/22 12:00 Pulse Ox 96 05/12/22 12:00 FiO2 Intake & Output 05/11/22 05/12/22 05/12/22 18:59 06:59 18:59 Intake Total 300 Output Total 2500 Balance -2200 Intake: Hemodialysis 300 Output: Hemodialysis 2500 Other: Voiding Method Toilet Toilet Toilet # Voids 0 - Labs CBC & Chem 7: 05/11/22 10:00 05/12/22 08:16 Labs: Abnormal Lab Results - Last 24 Hours (Table) 05/12/22 Range/Units 08:16 Sodium 132 L (137-145) mmol/L Potassium 5.8 H (3.5-5.1) mmol/L Chloride 93 L (98-107) mmol/L Carbon Dioxide 19 L (22-30) mmol/L BUN 55 H (9-20) mg/dL Creatinine 7.15 H* (0.66-1.25) mg/dL Calcium 7.8 L (8.4-10.2) mg/dL
[2022-05-13] MEDS: ASPIRIN 81 MG PO SCH (08:14)
[2022-05-13] MEDS: CLOPIDOGREL 75 MG TAB PO SCH (08:14)
[2022-05-13] MEDS: ATORVASTATIN 40 MG TAB PO SCH (08:14)
--- NOTE | 2022-05-13 09:31 | P.PN ---
Subjective Progress Note Date: 05/12/22 Patient is a 77-year-old right-handed male came to the hospital after he fell off the bed. He was going to the bathroom, when he just went down, couldn't stand up, couldn't get up. Patient's was also present today. Patient tells me that on the day of admission he woke up with stroke symptoms. When he lifted his arm, he hit his head with his hand. He touches left arm and felt "it was not mine". He grabbed his left-hand fingers with his right hand, and squeezes it and felt it was someone else's fingers. He got up and tried to go to the bathroom and he went down, as he had no feeling in the left leg. He was not a candidate for TPA as he came outside the window for TPA. Patient states that he has history of gout or rheumatoid arthritis. He has migratory arthritis. Sometimes involves the right knee joint sometimes the left. At present his left knee is swollen, hot and it hurts. He also has history of rash since he has been getting hemodialysis in the last 3 years. The rash comes and goes, clears up and then comes back. Patient has history of ESRD, on hemodialysis for last 3 years. Telemetry monitoring showing V-paced rhythm, with underlying atrial flutter. PVCs. Objective - Vital Signs Vital signs: Vital Signs Temp 98.1 F 05/12/22 12:00 Pulse 70 05/12/22 14:00 Resp 16 05/12/22 14:00 BP 131/62 05/12/22 12:00 Pulse Ox 96 05/12/22 12:00 FiO2 Intake & Output 05/11/22 05/12/22 05/12/22 18:59 06:59 18:59 Intake Total 300 Output Total 2500 Balance -2200 Intake: Hemodialysis 300 Output: Hemodialysis 2500 Other: Voiding Method Toilet Toilet Toilet # Voids 0 - Exam Patient is an elderly male, in no distress. Patient is sitting on the side of the bed. Patient is much more alert and awake. He knows it is April 2022. Is fully oriented. Speech and language functions are normal. Patient can name and repeat very well. No aphasia or dysarthria. Attention, concentration and fund of knowledge is adequate. On cranial nerve examination, pupils are equal, round and reacting to light, visual lovelace reveal left homonymous hemianopia. Extraocular muscles are int act with no nystagmus. He has slight decrease gaze on the left, but does come to the left. Face is symmetric, tongue protrudes to the midline. Palatal elevation and sensation normal, hearing and shoulder shrug normal, facial sensation normal. On muscle strength testing, there is left pronation, but no drift. He has some myoclonic jerking of his left arm with outstretched hands, better than yesterday. Muscle strength showed patient has chronically weak right shoulder. 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 Normal on the right. Hip flexion is 4, ankles 5 bilaterally. Deep tendon reflexes are symmetric 1-1+. Patient has Babinski on the left side. Sensory to touch is equal. No neglect on double simultaneous stimulation. Cerebellar function showed no ataxia for [id number] testing on the right. He has significant past pointing on the left hand for testing the finger, but was able to touch the nose without difficulty. This is likely due to left homonymous hemianopia. Tone and bulk of muscles normal. Gait deferred.. On general examination, there is no carotid bruit or murmur, S1-S2 audible. Chest is clear on consultation. Abdomen is soft nontender. No organomegaly, bowel sounds present. Peripheral pulses are not clearly present. Mild peripheral edema. Patient has significant rash on his body. - Labs CBC & Chem 7: 05/11/22 10:00 05/12/22 08:16 Labs: Abnormal Lab Results - Last 24 Hours (Table) 05/12/22 Range/Units 08:16 Sodium 132 L (137-145) mmol/L Potassium 5.8 H (3.5-5.1) mmol/L Chloride 93 L (98-107) mmol/L Carbon Dioxide 19 L (22-30) mmol/L BUN 55 H (9-20) mg/dL Creatinine 7.15 H* (0.66-1.25) mg/dL Calcium 7.8 L (8.4-10.2) mg/dL Assessment and Plan Assessment: 1. Acute ischemic stroke involving right temporal occipital region with left homonymous hemianopia and very mild left-sided deficits 2. End-stage renal disease, on hemodialysis for last 3 years 3. Pacemaker 4. History of TAVR, October 2021. Patient was prescribed some blood thinners after TAVR, which after he ran out, didn't renew the medication, as he used to b leed a lot after hemodialysis, as per his statement. 5. Hypertension 6. Atrial fibrillation 7. X tobacco use. Patient smoked 1 pack per day for 20 years, quit 45 years ago. Plan: 1. MRI of the brain cannot be performed because patient has pacemaker. Repeat CT head confirmed subacute ischemic stroke right temporal occipital region. Discussed with the radiologist. 2. 2-D echocardiogram revealed technically limited study. Left ventricular size is at upper limits of normal with concentric LVH and global decrease in contractility estimated EF between 30-35%. Patient appears to be in atrial fibrillation. He is mitral annular calcification with moderate eccentric mitral regurgitation. Aortic valve bioprosthesis apparent. 2. Hemoglobin A1c 5.5, TSH 6.55 mildly elevated, will defer to IM. 3. PT, OT and speech therapy consultations 3. Lipid panel with cholesterol 133, LDL 65, HDL 52 and triglycerides 77. Continue Lipitor 40 mg daily. 4. Patient currently on aspirin and Plavix. Patient has atrial fibrillation. Patient may be a candidate for long-term anticoagulation. Cardiology on board. We will discuss with cardiology.
[2022-05-13] MEDS ORDERED: CALAMINE/ZINC OXIDE LOTION 177 ML BTL TOPICAL PRN (12:23)
[2022-05-13] MEDS: methylPREDNISolone SOD SUCCI 125 MG/2 ML VIAL IV SCH ×3 (12:37→23:44)
[2022-05-13] MEDS: diphenhydrAMINE 50 MG CAP PO PRN (13:03)
[2022-05-13] MEDS ORDERED: PHENYLEPHRINE 2.5% OPHTH DRP 2ML BOTH EYES SCH (15:15)
[2022-05-13] MEDS ORDERED: PROPARACAINE 0.5% OPHTH DROPS 15 ML BTL BOTH EYES STA (15:15)
[2022-05-13] MEDS ORDERED: ARTIFICIAL TEARS-HYPROMELLOSE DROPS 15 ML BTL BOTH EYES PRN (15:15)
[2022-05-13] MEDS ORDERED: TROPICAMIDE 1% OPHTH DROPS 2 ML BTL BOTH EYES ONE (15:15)
--- NOTE | 2022-05-13 16:11 | P.PN ---
Subjective Patient is seen for follow-up for end-stage renal disease maintained on Wednesday schedule at the [facility]. Patient was admitted to the hospital with history of fall. No significant complaints today. Patient has been tolerating dialysis well Objective - Vital Signs Vital signs: Vital Signs Temp 97.6 F 05/13/22 12:00 Pulse 70 05/13/22 14:00 Resp 18 05/13/22 14:00 BP 114/62 05/13/22 12:00 Pulse Ox 96 05/13/22 12:00 FiO2 Intake & Output 05/12/22 05/13/22 05/13/22 18:59 06:59 18:59 Intake Total 118 590 480 Balance 118 590 480 Intake: Oral 118 590 480 Other: Voiding Method Toilet Toilet Toilet - Exam Awake, comfortable, not in any acute distress Examination of the heart S1 and S2 Examination lungs bilateral breath sounds are heard Abdomen is soft nontender Examination of lower extremities shows no significant edema [employer] BPM ARCHITECT exam grossly intact - Labs CBC & Chem 7: 05/11/22 10:00 05/12/22 08:16 Assessment and Plan Assessment: 1. ESRD on dialysis Wednesday and Wednesday at [facility] dialysis unit. Fistula right upper arm 2. Admitted with fall and possible transient weakness on the left side. CTA of the head and computed tomography scan of the brain both are normal 3. Chest x-ray is suggestive congestive heart failure but patient clinically does not appear to be volume overloaded 4. Anemia hemoglobin is 10.6 at target. 9.8 on 05/11/2022 5. Hyperkalemia associated with ESRD. Potassium has been staying high. Status post low Obi a and being dialyzed today Plan: Hemodialysis today Maintain low potassium diet Physical therapy.
--- NOTE | 2022-05-13 18:23 | P.CON ---
Consult Note - . Consult date: 05/13/22 Assessment/Plan:: This is a 77 y/o male who has been admitted following a fall sustained at home. During this admission he is noted as having problems with his peripheral vision on both sides, especially to the left. He has undergone cataract surgery in 2013, and subsequent YAG pc laser for both eye, he's had implant with the EDOF style of lens, i.e., he only uses reading glasses some time. Therefore, since his cataract lens implant surgery he's enjoyed pretty much unfettered vision. His last eye exam was earlier this year and was unconsequential. He denies any macular degeneration or glaucoma problems. The vision changes as he is aware have been significantly different since the fall and has not improved or worsened during his admission. He underwent a noncontrasted CT which has identified a right occipital lesion likely consistent with CVA. Va: w/o correction 20/20, OD and 20/20 OS, (he has a tough time quickly identifying an eye chart in front of his eyes without some direction - and he prefers to read from right to left) Ext: normal Pupils: no APD CF: homonymous restriction in field especially from left IOP: 18 mmHg OD, 15 mm Hg OS @ 1745 Cornea: clear Conj: white and clear AC: D&Q Iris: normal Lens: EDOF ( multiple concerntric rings) Vitreous: clear Dilated @ 1750 neosynephrine 2.5% & tropicamide 1% OU - will leave eyes dilated for next 7-8 Optic nerve: S/F/P C:D 0.15 OU Mac: normal FLR Vasc: mild to moderate attenuation, otherwise, normal Peripheral: normal, mild age-related changes A: 1) Occipital stroke, affecting all but the central 10-15. Expectations are limited in reestablishing normal unrestricted activity, e.g., no driving, and ambulation without significant assistance. 2) post cataract doing well P: recommend instituting blind precautions, does have straight ahead ability to read in a limited field. Recommend approaching from left side to reduce any startle reaction, etc. should have followup visual field testing, and possible low vision services, typically at [place] or the [facility] for occupational assistance. Will be happy to see as needed once discharged.
[2022-05-14] MEDS: methylPREDNISolone SOD SUCCI 125 MG/2 ML VIAL IV SCH ×2 (05:36→13:22)
--- NOTE | 2022-05-14 05:37 | P.PN ---
Subjective Progress Note Date: 05/13/22 Patient is a 77-year-old male with a known history of ESRD on hemodialysis, history of aortic valve replacement no prior history of CVA presents to ER status post fall at home. Patient states that he suddenly developed left-sided weakness and unable to stand while he was going to his bed and suddenly fell on the ground and hit his head. Patient states that she felt like blurry vision and unable to find his phone and call EMS. Patient was on the floor for about 2 hours before he was able to call 911. Patient states that he was having chest pain after the fall. No shortness of breath.. Denied any loss of consciousness with the fall. No complaints of nausea vomiting or abdominal pain. No recent illnesses. Patient did not miss any hemodialysis. No fever no chills. No cough or sputum production. Denies any dysuria or hematuria. Chest x-ray showed findings suggest pulmonary venous hypertension and interstitial edema. CT head and cervical spine showed multilevel cervical spondylitic changes. No fracture seen. Stable atrophy. No acute intracranial abnormality. CT angiogram of the head and neck showed atheromatous changes are present. EKG showed electronic ventricular paced rhythm. Laboratory data showed WBC 6.4 hemoglobin 10.6 and platelets 256 MCV 100.1 D-dimer level is 6.99 Sodium 136 4 potassium 5.1 chloride 96 BUN 36 and creatinine 4.5 Calcium 7.7 and AST 727 ALT 17 alk phos 340 Troponin 0.721, 0.698 and 0.687 TSH level is 6.55 05/10/2022 Patient is currently lying bed. Awake alert and oriented x3. Still complains of aching chest pain with movement. Breathing is also stable. Troponin trending down. No nausea vomiting abdominal pain or diarrhea. No dizziness or lightheadedness. Neurology is on board and plan for MRI but could not be done due to patient giovanni arizmendi on pacemaker. 2D echocardiogram pending. Laboratory pressure WBC 5.3 hemoglobin 9.9 and platelets 266 Sodium 133 potassium 5.8 chloride 95 BUN 52 and creatinine 6.59 and calcium 7.8 and free T4 level is 1.44. Nephrology, neurology and cardiology is on board. Hemodialysis on Wednesday. Current medications reviewed. 05/11/2022 Patient is seen and evaluated in follow-up this morning currently awaiting MRI and questionable is pacer safe for MRI otherwise reordering CT of the brain. Patient did have low-grade temps today per nursing staff. Patient is end-stage renal disease maintained on hemodialysis with nephrology following. Currently awaiting 2-D echo along with a.m. labs. Patient reports having some deficits with the upper extremities and continues to feel weak. Patient did have low g rade 100.1 and denies any chest pain or shortness of breath. Patient denies nausea or vomiting and tolerating diet. PT/OT evaluation. 05/12/2022 Patient seen today and is post ct brain which shows some vague hypodensity right temporal occipital region that could reflect an evolving infarct. Patient is maintained on hemodialysis. Patient continues with significant weakness and reports he is unstable to walk. PT/OT following and recommend ecf for rehab. Patient is agreeable. Case management following and working on possible ECF. Patient is afebrile and denies chest pain or shortness of breath. No reports of nausea or vomiting and tolerating diet. Potassium is elevated today and given a dose of lokelma with hemodialysis scheduled for am. 05/13/2022 Patient is seen and evaluated in follow up today with neurology following. Patient continues with visual disturbances that he reports has been ongoing since the fall with no improvements. Consult to opthalmology placed. Patient is continued on aspirin and statin along with plavix and being considered for eliquis low dose due to renal function. Skin rash on the back patient reports has improved with hydrocortisone although noticed on the abdomen now as well with difference in appearance. Patient reports he was seeing a derm and supposed to have a biopsy then all of this occurred. Patient with significant weakness and planning possible ecf. Patient is afebrile and denies chest pain or shortness of breath. No reports of nausea or vomiting and tolerating diet. Review of systems: Constitutional: No reports of fatigue, fever, or chills Cardiovascular: No reports of chest pain or palpitations Respiratory: No reports of shortness of breath or cough GI: No reports of nausea, vomiting, or diarrhea : No reports of dysuria or retention Neurovascular: reports of some weakness and inability to walk steadily,reports continued visual disturbance All medications have been reviewed Physical exam: Patient is lying in the bed, awake alert and oriented.. well developed, well nourished HEENT: Normocephalic. Neck is supple. Pupils reactive. Nostrils clear. Oral cavity is moist. Neck reveals no JVD, carotid bruits, or thyromegaly. CHEST EXAMINATION: Trachea is central. Symmetrical expansion. Bibasilar diminished sounds. CARDIAC: S1, S2 muffled ABDOMEN: Soft. Bowel sounds present. Nontender. No organomegaly. No abdominal bruits. Extremities: reveal no edema. No clubbing or cyanosis Neurologically awake, alert, oriented x3 with well-coordinated movements. No focal deficits noted Skin: rash on the back and now abdomen, appears to be an allergic reaction with multiple shaw of scratching noted Psychiatric: Cooperative. Non-suicidal, Musculoskeletal: No joint swelling or deformity. Normal range of motion. Assessment: Left-sided weakness and sudden fall and hit his head. No loss of consciousness. No residual weakness. LIkely acute CVA right temporal occipital region as noted on repeat CT 05-11-2022 Possible allergic reaction to linens or medication on back and spreading around to abdomen ESRD on hemodialysis Wednesday and Wednesday Chest pain likely musculoskeletal after fall. History of TAVR History of afib visual disturbance likely due to the cva History of pacemaker placement Elevated troponin level likely secondary to ESRD Elevated D-dimer level. Likely due to ESRD. VQ scan shows low probability of PE. Elevated TSH level. GI and DVT prophylaxis Full code Plan: Patient admitted secondary to right temporal occipital region evolving infarct . Continue with statins. Neurology following. Patient is on aspirin and plavix for a total of 7 days and then possible anticoagulation low dose due to renal functions with history of afib Patient having visual disturbances that remain and Opthalmologist consulted Patient also continues with what appears to be an allergic reaction rash on the back that has migrated to the chest as well although appear different in appearance. Needs follow up with dermatology.Patient reports he was seeing one and was to have a biopsy but was admitted here after fall Case management following and working on possible ecf and continues with weakness and difficulty standing. Family and patient are agreeable Potassium elevated scheduled for hemodialysis today. Nephrology following recommend repeat am labs Possible discharge in 24-48 hours. Due to multiple complex medical issues, prognosis is guarded. The impression and plan of care has been dictated by Marta Nunn, Nurse Practitioner as directed. Dr. Rashawn MD I have performed a history and examination and MDM of this patient, discussed the same with the dictator, and agree with the dictator's assessment and plan as written ,documented as a scribe. Based on total visit time, I have performed more than 50% of the visit. Objective - Vital Signs Vital signs: Vital Signs Temp 97.4 F L 05/13/22 23:58 Pulse 75 05/14/22 02:00 Resp 17 05/13/22 23:58 BP 142/85 05/13/22 23:58 Pulse Ox 97 05/13/22 23:58 FiO2 Intake & Output 05/13/22 05/13/22 05/14/22 06:59 18:59 06:59 Intake Total 590 480 480 Output Total 0 Balance 590 480 480 Intake: Oral 590 480 480 Output: Urine 0 Other: Voiding Method Toilet Toilet Toilet - Labs CBC & Chem 7: 05/11/22 10:00 05/12/22 08:16
[2022-05-14 08:52] LABS: Potassium 5.1 mmol/L (3.5-5.1)
[2022-05-14] MEDS: ASPIRIN 81 MG PO SCH (09:27)
[2022-05-14] MEDS: HEPARIN SODIUM,PORCINE/PF 5,000 UNIT/0.5 ML SYRINGE SQ SCH (09:27)
[2022-05-14] MEDS: ATORVASTATIN 40 MG TAB PO SCH (09:27)
[2022-05-14] MEDS: HYDROCORTISONE 1% CREAM 454 GM JAR TOPICAL SCH ×2 (09:28→13:22)
[2022-05-14 09:43] VITALS: BP 135/73; PULSE 70; RESP 16; TEMP 97.4
[2022-05-14 11:50] VITALS: BMI 25.4
[2022-05-14] MEDS: diphenhydrAMINE 50 MG CAP PO PRN (13:22)
--- NOTE | 2022-05-14 13:32 | P.PN ---
Subjective Patient is seen for follow-up for end-stage renal disease maintained on Wednesday schedule at the [facility]. Patient was admitted to the hospital with history of fall. No significant complaints today. Patient has been tolerating dialysis well Objective - Vital Signs Vital signs: Vital Signs Temp 97.4 F L 05/14/22 09:25 Pulse 70 05/14/22 09:25 Resp 16 05/14/22 09:25 BP 135/73 05/14/22 09:25 Pulse Ox 93 L 05/14/22 09:25 FiO2 Intake & Output 05/13/22 05/14/22 05/14/22 18:59 06:59 18:59 Intake Total 480 480 118 Output Total 0 Balance 480 480 118 Weight 80.603 kg Intake: Oral 480 480 118 Output: Urine 0 Other: Voiding Method Toilet Toilet Toilet - Exam Awake, comfortable, not in any acute distress Examination of the heart S1 and S2 Examination lungs bilateral breath sounds are heard Abdomen is soft nontender Examination of lower extremities shows no significant edema ASTRONOMY DEPARTMENT CHAIR exam grossly intact - Labs CBC & Chem 7: 05/11/22 10:00 05/14/22 07:45 Labs: Abnormal Lab Results - Last 24 Hours (Table) 05/14/22 Range/Units 07:45 Sodium 135 L (137-145) mmol/L Chloride 90 L (98-107) mmol/L BUN 47 H (9-20) mg/dL Creatinine 5.72 H (0.66-1.25) mg/dL Glucose 241 H (74-99) mg/dL Calcium 8.0 L (8.4-10.2) mg/dL Assessment and Plan Assessment: 1. ESRD on dialysis Wednesday and Wednesday at [facility] dialysis unit. Fistula right upper arm 2. Admitted with fall and possible transient weakness on the left side. CTA of the head and computed tomography scan of the brain both are normal 3. Chest x-ray is suggestive congestive heart failure but patient clinically does not appear to be volume overloaded 4. Anemia hemoglobin is 10.6 at target. 9.8 on 05/11/2022 5. Hyperkalemia associated with ESRD. Potassium has been staying high. Status post low Obi a and being dialyzed today Plan: Hemodialysis in a.m. if still here. Maintain low potassium diet Physical therapy.
--- NOTE | 2022-05-14 13:55 | P.DS ---
Providers Date of admission: 05/09/22 08:05 Expected date of discharge: 05/14/22 Attending physician: Meenakshi Orantes Consults: 05/09/22 08:07 Consult Physician Routine Consulting Provider: Sanaz Shaffer Consult Reason/Comments: TIA Do you want consulting provider notified?: Yes 05/09/22 08:09 Consult Physician Routine Consulting Provider: Jo-Ann Story Consult Reason/Comments: Dialysis Do you want consulting provider notified?: Yes 05/13/22 12:14 Consult Physician Stat Consulting Provider: Dash De Los Santos Consult Reason/Comments: visual disturbance/ cva Do you want consulting provider notified?: Yes Primary care physician: Physician Nonstaff Hospital Course: Final diagnosis Left-sided weakness and sudden fall and hit his head. No loss of consciousness. No residual weakness. LIkely acute CVA right temporal occipital region as noted on repeat CT 05-11-2022 Possible allergic reaction to linens or medication on back and spreading around to abdomen, improving recommend outpatient follow-up with dermatology as patient has been following with ESRD on hemodialysis Wednesday and Wednesday Chest pain likely musculoskeletal after fall. History of TAVR History of afib visual disturbance likely due to the cva History of pacemaker placement Elevated troponin level likely secondary to ESRD Elevated D-dimer level. Likely due to ESRD. VQ scan shows low probability of PE. Elevated TSH level. GI and DVT prophylaxis Full code Discharge disposition Patient is being discharged in a stable condition with guarded prognosis to [facility]. Patient will follow-up with his PCP in [place] in the outpatient setting upon discharge. Patient is to continue with hemodialysis as scheduled on Wednesday/Wednesday/Wednesday and outpatient follow-up with nephrology. Patient also to follow-up with Dr. De Los Santos ophthalmology along with neurology. Total time taken is greater than 35 minutes. Hospital course This is a 77-year-old male who was recently admitted with fall at home left- sided weakness and inability to stand and hit his head and initial CT was negative although repeat CT done showing CVA. Patient was initially on aspirin and Plavix although experiencing an ALLERGIC reaction and only new medication was Plavix and has been discontinued. Patient is end-stage renal disease on Wednesday/Wednesday/Wednesday schedule and rash is improving with Benadryl and hydrocortisone recommend to continue and also patient has been being seen by dermatology outpatient recommended outpatient follow-up for possible biopsy. Patient with history of atrial fibrillation and these recent strokes neurology recommending close outpatient follow-up with neurology and his tableau lead in [place] to discuss starting low-dose eliquis. Recommend continue with aspirin and subcutaneous heparin for now. Patient with visual disturbances was seen by Dr. De Los Santos rubber cutter and shape carver and will need extensive rehab and outpatient follow- up and also recommending possible specialist evaluation out of [facility] or [facility] in [place]. Currently no reports of chest pain, shortness of breath, or palpitations. Patient is afebrile. No reports of nausea or vomiting and patient is tolerating diet. Patient will be going to [facility] today. Guarded prognosis. Physical exam: Gen: This is a 77-year-old male awake, alert and oriented 3, elderly-appearing male HEENT: Head is atraumatic, normocephalic. Pupils equal, round. Sclerae is anicteric. NECK: Supple. No JVD. No lymphadenopathy. No thyromegaly. LUNGS: Diminished breath sounds bilaterally with no wheezing or rhonchi noted. No intercostal retractions. HEART: S1, S2 are muffled ABDOMEN: Soft. Bowel sounds are present. No masses. No tenderness. EXTREMITIES: No pedal edema. No calf tenderness. NEUROLOGICAL: Patient is awake, alert and oriented x3. Cranial nerves 2 through 12 are grossly intact. Patient with weakness and gait dysfunction with diffuse weakness noted Please refer to medication reconciliation sheet for a list of medications. The impression and plan of care has been dictated by Marta Nunn, Nurse Practitioner as directed. Dr. Rashawn MD I have performed a history and examination and MDM of this patient, discussed the same with the dictator, and agree with the dictator's assessment and plan as written ,documented as a scribe. Based on total visit time, I have performed more than 50% of the visit. Patient Condition at Discharge: Fair Plan - Discharge Summary Discharge Rx Participant: No New Discharge Prescriptions: New diphenhydrAMINE [Benadryl] 50 mg PO TID PRN cap PRN Reason: Itching Calamine/Zinc Oxide Lotion [Calamine Lotion] 1 applic TOPICAL QID PRN each PRN Reason: Skin Irritation Hydrocortisone Cream [Hydrocortisone 1% Cream] 1 applic TOPICAL TID #28 gm Atorvastatin [Lipitor] 40 mg PO DAILY tab Phenylephrine 2.5% Ophth Soln [Pawel-Synephrine Ophth] 1 drops BOTH EYES DIRECTED ml Artificial Tears-Hypromellose [Artificial Tear Drops] 1 drops BOTH EYES QID PRN ml PRN Reason: Dry Eye(S) Aspirin 81 mg PO DAILY tab Heparin Sodium,Porcine [Heparin Sodium] 5,000 unit SQ Q12HR 30 Days #60 each Acetaminophen Tab [Tylenol] 325 mg PO Q6HR PRN tab PRN Reason: Fever And/ Or Pain Discharge Medication List Acetaminophen Tab [Tylenol] 325 mg PO Q6HR PRN tab 05/14/22 [Rx] Artificial Tears-Hypromellose [Artificial Tear Drops] 1 drops BOTH EYES QID PRN ml 05/14/22 [Rx] Aspirin 81 mg PO DAILY tab 05/14/22 [Rx] Atorvastatin [Lipitor] 40 mg PO DAILY tab 05/14/22 [Rx] Calamine/Zinc Oxide Lotion [Calamine Lotion] 1 applic TOPICAL QID PRN each 05/14/22 [Rx] Heparin Sodium,Porcine [Heparin Sodium] 5,000 unit SQ Q12HR 30 Days #60 each 05/14/22 [Rx] Hydrocortisone Cream [Hydrocortisone 1% Cream] 1 applic TOPICAL TID #28 gm 05/14/22 [Rx] Phenylephrine 2.5% Ophth Soln [Pawel-Synephrine Ophth] 1 drops BOTH EYES DIRECTED ml 05/14/22 [Rx] diphenhydrAMINE [Benadryl] 50 mg PO TID PRN cap 05/14/22 [Rx] Follow up Appointment(s)/Referral(s): Tawana Gilmore MD [STAFF PHYSICIAN] - 1 Week Dash De Los Santos MD [STAFF PHYSICIAN] - 1 Week Jania Miller MD [Medical Doctor] - 1 Week Lisettetagualberto,Physician [Primary Care Provider] - 1-2 days Activity/Diet/Wound Care/Special Instructions: Patient is going to [facility] as tolerated Continue dialysis Wednesday/Wednesday/Wednesday as scheduled Follow-up with your tableau lead in 1-2 weeks Continue taking medications as prescribed Follow-up ophthalmology outpatient Follow-up neurology outpatient Discussed with tableau lead about starting low-dose eliquis Continue renal diet Discharge Disposition: TRANSFER TO SNF/ECF
--- NOTE | 2022-05-14 15:14 | P.PN ---
Subjective Progress Note Date: 05/13/22 05/13/2022: Patient was seen for a follow-up. Patient is undergoing hemodialysis. Patient continues to have rash on the back, which is chronic. However he has developed new petechial rash over his torso, below the breast region across his chest, left side more than the right. Denies any new neurological symptoms. Patient still complaining of visual disturbance. 05/12/2022: Patient is a 77-year-old right-handed male came to the hospital after he fell off the bed. He was going to the bathroom, when he just went down, couldn't stand up, couldn't get up. Patient's was also present today. Patient tells me that on the day of admission he woke up with stroke symptoms. When he lifted his arm, he hit his head with his hand. He touches left arm and felt "it was not mine". He grabbed his left-hand fingers with his right hand, and squeezes it and felt it was someone else's fingers. He got up and tried to go to the bathroom and he went down, as he had no feeling in the left leg. He was not a candidate for TPA as he came outside the window for TPA. Patient states that he has history of gout or rheumatoid arthritis. He has migratory arthritis. Sometimes involves the right knee joint sometimes the left. At present his left knee is swollen, hot and it hurts. He also has history of rash since he has been getting hemodialysis in the last 3 years. The rash comes and goes, clears up and then comes back. Patient has history of ESRD, on hemodialysis for last 3 years. Telemetry monitoring showing V-paced rhythm, with underlying atrial flutter. PVCs. Objective - Vital Signs Vital signs: Vital Signs Temp 97.6 F 05/13/22 12:00 Pulse 70 05/13/22 16:00 Resp 18 05/13/22 16:00 BP 122/65 05/13/22 16:00 Pulse Ox 93 L 05/13/22 16:00 FiO2 Intake & Output 05/12/22 05/13/22 05/13/22 18:59 06:59 18:59 Intake Total 118 590 480 Balance 118 590 480 Intake: Oral 118 590 480 Other: Voiding Method Toilet Toilet Toilet - Exam Patient is an elderly male, laying in the bed, undergoing dialysis. Patient is much more alert and awake. He knows it is April 2022. Is fully oriented. Speech and language functions are normal. Patient can name and repeat very well. No aphasia or dysarthria. Attention, concentration and fund of knowledge is adequate. On cranial nerve examination, pupils are equal, round and reacting to light, visual lovelace reveal left homonymous hemianopia. Extraocular muscles are intact with no nystagmus. He has slight decrease gaze on the left, but does come to the left. Face is symmetric, tongue protrudes to the midline. Palatal elevation and sensation normal, hearing and shoulder shrug normal, facial sensation normal. On muscle strength testing, there is left pronation, but no drift. He has some myoclonic jerking of his left arm with outstretched hands, better than yesterday. Muscle strength showed patient has chronically weak right shoulder. The biceps and triceps are equal bilaterally, dedicated regional driver is slightly decreased 5-only on the left. Normal on the right. Hip flexion is 4, ankles 5 bilaterally. Deep tendon reflexes are symmetric 1-1+. Patient has Babinski on the left side. Sensory to touch is equal. No neglect on double simultaneous stimulation. Cerebellar function showed no ataxia for [id number] testing on the right. He has significant past pointing on the left hand for testing the finger, but was able to touch the nose without difficulty. This is likely due to left homonymous hemianopia. Tone and bulk of muscles normal. Gait deferred.. On general examination, there is no carotid bruit or murmur, S1-S2 audible. Chest is clear on consultation. Abdomen is soft nontender. No organomegaly, bowel sounds present. Peripheral pulses are not clearly present. Mild peripheral edema. Patient has significant rash on the back of his body, which is chronic. Also has a new petechial rash over the anterior abdominal region, below the breast region, left side more than right. - Labs CBC & Chem 7: 05/11/22 10:00 05/14/22 07:45 Assessment and Plan Assessment: 1. Acute ischemic stroke involving right temporal occipital region with left homonymous hemianopia and very mild left-sided deficits 2. End-stage renal disease, on hemodialysis for last 3 years 3. Pacemaker 4. History of TAVR, October 2021. Patient was prescribed some blood thinners after TAVR, which after he ran out, didn't renew the medication, as he used to bleed a lot after hemodialysis, as per his statement. 5. Hypertension 6. Atrial fibrillation 7. New petechial rash involving the anterior abdominal region, perhaps drug ALLERGY. 8. X tobacco use. Patient smoked 1 pack per day for 20 years, quit 45 years ago. Plan: 1. MRI of the brain cannot be performed because patient has pacemaker. Repeat CT head confirmed subacute ischemic stroke right temporal occipital region. Discussed with the radiologist. 2. 2-D echocardiogram revealed technically limited study. Left ventricular size is at upper limits of normal with concentric LVH and global decrease in contractility estimated EF between 30-35%. Patient appears to be in atrial fibrillation. He is mitral annular calcification with moderate eccentric mitral regurgitation. Aortic valve bioprosthesis apparent. 2. Hemoglobin A1c 5.5, TSH 6.55 mildly elevated, will defer to IM. 3. PT, OT and speech therapy consultations 3. Lipid panel with cholesterol 133, LDL 65, HDL 52 and triglycerides 77. Continue Lipitor 40 mg daily. 4. Patient has developed petechial rash over his torso below the breast region, left more than right. His platelet counts are normal. I reviewed his rash with the checker cashier locally, who believes Plavix may be the culprit. We will stop Plavix, maintain on aspirin 81 mg daily. Await cardiology recommendation regarding atrial fibrillation.
--- NOTE | 2022-05-15 13:02 | P.PN ---
Subjective Progress Note Date: 05/14/22 05/14/2022: Patient was seen for a follow-up. Patient is sitting comfortably in the bed. His rash has improved. No new focal symptoms. 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 05/13/2022: Patient was seen for a follow-up. Patient is undergoing hemodialysis. Patient continues to have rash on the back, which is chronic. However he has developed new petechial rash over his torso, below the breast region across his chest, left side more than the right. Denies any new neurological symptoms. Patient still complaining of visual disturbance. 05/12/2022: Patient is a 77-year-old right-handed male came to the hospital after he fell off the bed. He was going to the bathroom, when he just went down, couldn't stand up, couldn't get up. Patient's was also present today. Patient tells me that on the day of admission he woke up with stroke symptoms. When he lifted his arm, he hit his head with his hand. He touches left arm and felt "it was not mine". He grabbed his left-hand fingers with his right hand, and squeezes it and felt it was someone else's fingers. He got up and tried to go to the bathroom and he went down, as he had no feeling in the left leg. He was not a candidate for TPA as he came outside the window for TPA. Patient states that he has history of gout or rheumatoid arthritis. He has migratory arthritis. Sometimes involves the right knee joint sometimes the left. At present his left knee is swollen, hot and it hurts. He also has history of rash since he has been getting hemodialysis in the last 3 years. The rash comes and goes, clears up and then comes back. Patient has history of ESRD, on hemodialysis for last 3 years. Telemetry monitoring showing V-paced rhythm, with underlying atrial flutter. PVCs. Objective - Vital Signs Vital signs: Vital Signs Temp 97.4 F L 05/14/22 09:25 Pulse 70 05/14/22 09:25 Resp 16 05/14/22 09:25 BP 135/73 05/14/22 09:25 Pulse Ox 93 L 05/14/22 09:25 FiO2 Intake & Output 10/05/14/22 05/14/22 18:59 06:59 18:59 Intake Total 480 480 598 Output Total 0 Balance 480 480 598 Weight 80.603 kg Intake: Oral 480 480 598 Output: Urine 0 Other: Voiding Method Toilet Toilet Toilet # Voids 0 - Exam Patient is an elderly male, sitting comfortably in the bed. Patient is much more alert and awake. Patient is fully oriented. Speech and language functions are normal. Patient can name and repeat very well. No aphasia or dysarthria. Attention, concentration and fund of knowledge is adequate. On cranial nerve examination, pupils are equal, round and reacting to light, visual lovelace reveal left homonymous hemianopia. Extraocular muscles are intact with no nystagmus. He has slight decrease gaze on the left, but does come to the left. Face is symmetric, tongue protrudes to the midline. Palatal elevation and sensation normal, hearing and shoulder shrug normal, facial sensation normal. On muscle strength testing, there is left pronation, but no drift. He has some myoclonic jerking of his left arm with outstretched hands, better than yesterday. Muscle strength showed patient has chronically weak right shoulder. The biceps and triceps are equal bilaterally, correctional guard is slightly decreased 5-only on the left. Normal on the right. Hip flexion is 4, ankles 5 bilaterally. Deep tendon reflexes are symmetric 1-1+. Patient has Babinski on the left side. Sensory to touch is equal. No neglect on double simultaneous stimulation. Cerebellar function showed no ataxia for [id number] testing on the right. He has significant past pointing on the left hand for testing the finger, but was able to touch the nose without difficulty. This is likely due to left homonymous hemianopia. Tone and bulk of muscles normal. Gait deferred.. On general examination, there is no carotid bruit or murmur, S1-S2 audible. Chest is clear on consultation. Abdomen is soft nontender. No organomegaly, bowel sounds present. Peripheral pulses are not clearly present. Mild peripheral edema. Patient has significant rash on the back of his body, which is chronic. Also has a new petechial rash over the anterior abdominal region, below the breast region, left side more than right. This rash is better today as compared to yesterday. Not as bright. - Labs CBC & Chem 7: 05/11/22 10:00 05/14/22 07:45 Labs: Abnormal Lab Results - Last 24 Hours (Table) 05/14/22 Range/Units 07:45 Sodium 135 L (137-145) mmol/L Chloride 90 L (98-107) mmol/L BUN 47 H (9-20) mg/dL Creatinine 5.72 H (0.66-1.25) mg/dL Glucose 241 H (74-99) mg/dL Calcium 8.0 L (8.4-10.2) mg/dL Assessment and Plan Assessment: 1. Acute ischemic stroke involving right temporal occipital region with left homonymous hemianopia and very mild left-sided deficits 2. End-stage renal disease, on hemodialysis for last 3 years 3. Pacemaker 4. History of TAVR, October 2021. Patient was prescribed some blood thinners after TAVR, which after he ran out, didn't renew the medication, as he used to bleed a lot after hemodialysis, as per his statement. 5. Hypertension 6. Atrial fibrillation 7. New petechial rash involving the anterior abdominal region, perhaps drug ALLERGY. 8. X tobacco use. Patient smoked 1 pack per day for 20 years, quit 45 years ago. Plan: 1. MRI of the brain cannot be performed because patient has pacemaker. Repeat CT head confirmed subacute ischemic stroke right temporal occipital region. Discussed with the radiologist. 2. 2-D echocardiogram revealed technically limited study. Left ventricular size is at upper limits of normal with concentric LVH and global decrease in c ontractility estimated EF between 30-35%. Patient appears to be in atrial fibrillation. He is mitral annular calcification with moderate eccentric mitral regurgitation. Aortic valve bioprosthesis apparent. 3. Hemoglobin A1c 5.5, TSH 6.55 mildly elevated, will defer to IM. 4. PT, OT and speech therapy consultations 5. Lipid panel with cholesterol 133, LDL 65, HDL 52 and triglycerides 77. C ontinue Lipitor 40 mg daily. 6. Patient has developed petechial rash over his torso below the breast region, left more than right. His platelet counts are normal. I reviewed his rash with the turbine attendant locally, who believes Plavix may be the culprit. We will stop Plavix, maintain on aspirin 81 mg daily. Await cardiology recommendation regarding atrial fibrillation. 7 Patient has atrial fibrillation. Patient is a candidate for long-term anticoagulation. Because of recent stroke, would hold off on anticoagulation for 7 days. Discussed with primary team. Patient will follow-up with industrial renderer regarding initiation of low-dose anticoagulation. Neurologically clear for discharge.
--- NOTE | 2022-05-18 10:24 | CDI ---
Documentation Clarification Form Date: 05/18/22 From: Chloé Olsen Admit Date: 05/09/2022 08:05:00 AM Patient Name: Reg Juares Visit Number: [id number] Discharge Date: 05/14/2022 05:25:00 PM ATTENTION: The Clinical Documentation Specialists (CDI) and [facility] Coding Staff appreciate your assistance in clarifying documentation. Please respond to the clarification below the line at the bottom and electronically sign. The CDI & [facility] Coding staff will review the response and follow-up if needed. Please note: Queries are made part of the Legal Health Record. If you have any questions, please contact the author of this message via ITS. Dr. Porter Morocho, Atrial Fibrillation is documented in Dr Garcia's PN on 05/12. Additional clarification regarding the type of atrial fibrillation is requested. History/Risk Factors: CVA w left sided weakness and homonymous bilateral field defects-left side, HTN w ESRD Clinical Indicators: Based upon his atrial fibrillation, patient is a candidate for long-term anticoagulation. Plavix 75 mg, aspirin 81 mg daily for 7 days and after 7 days switch to oral anticoagulation, Eliquis 2.5 twice a day. 05/11 Echo: Patient appears to be in atrial fibrillation. Please clarify the type of atrial fibrillation, if known: [ ] Chronic [ ] Permanent [ ] Paroxysmal [ ] Persistent [ ] Other, please specify [ ] Unable to determine Chronic MTDD
--- NOTE | 2022-05-18 10:29 | CDI ---
Documentation Clarification Form Date: 05/18/22 From: Chloé Olsen Admit Date: 05/09/2022 08:05:00 AM Patient Name: Reg Juares Visit Number: [id number] Discharge Date: 05/14/2022 05:25:00 PM ATTENTION: The Clinical Documentation Specialists (CDI) and [facility] Coding Staff appreciate your assistance in clarifying documentation. Please respond to the clarification below the line at the bottom and electronically sign. The CDI & [facility] Coding staff will review the response and follow-up if needed. Please note: Queries are made part of the Legal Health Record. If you have any questions, please contact the author of this message via ITS. Dr. Porter Morocho, Atrial Flutter is documented in Dr Garcia's PN on 05/12. Additional clarification regarding the type of Atrial Flutter is requested. History/Risk factors: CVA w left sided weakness and homonymous bilateral field defects-left side, HTN w ESRD Clinical Indicators: Atrial flutter and atrial fibrillation. EKG/telemetry: Telemetry monitoring showing V-paced rhythm, with underlying atrial flutter. Treatment: Patient is a candidate for long-term anticoagulation. Plavix 75 mg, aspirin 81 mg daily for 7 days and after 7 days switch to oral anticoagulation, Eliquis 2.5 twice a day. Please clarify the type of Atrial Flutter, if known: [ ] Typical/Type I [ ] Atypical/Type II [ ] Other, please specify [ ] Unable to determine Unable to determine MTDD
== END 2022-05-14 17:25 | DRG 64 ==
LOC: EC 06:38 → 3SCARD 08:05
PROVIDERS: ADMIT Internal Medicine; ATTEND Internal Medicine
PROC: 3E0234Z Introduction of Serum, Toxoid and Vaccine into Muscle, Percutaneous Approach (ICD-10-PCS; principal; 2022-05-09)
PROC: 5A1D70Z Performance of Urinary Filtration, Intermittent, Less than 6 Hours Per Day (ICD-10-PCS; 2022-05-11)
DX: I63.9 Cerebral infarction, unspecified (principal); N18.6 End stage renal disease; G81.94 Hemiplegia, unspecified affecting left nondominant side; I12.0 Hypertensive chronic kidney disease with stage 5 chronic kidney disease or end stage renal disease; I48.20 Chronic atrial fibrillation, unspecified; I48.92 Unspecified atrial flutter; I27.20 Pulmonary hypertension, unspecified; H53.462 Homonymous bilateral field defects, left side; D63.1 Anemia in chronic kidney disease; M06.9 Rheumatoid arthritis, unspecified; Z99.2 Dependence on renal dialysis; Z23 Encounter for immunization; Z20.822 Contact with and (suspected) exposure to COVID-19; I49.3 Ventricular premature depolarization; I65.21 Occlusion and stenosis of right carotid artery; R29.700 NIHSS score 0; S51.012A Laceration without foreign body of left elbow, initial encounter; E87.5 Hyperkalemia; I34.0 Nonrheumatic mitral (valve) insufficiency; M10.9 Gout, unspecified; R07.89 Other chest pain; M25.462 Effusion, left knee; T50.905A Adverse effect of unspecified drugs, medicaments and biological substances, initial encounter; L23.9 Allergic contact dermatitis, unspecified cause; R21 Rash and other nonspecific skin eruption; M47.812 Spondylosis without myelopathy or radiculopathy, cervical region; R77.8 Other specified abnormalities of plasma proteins; Z87.891 Personal history of nicotine dependence; Z95.0 Presence of cardiac pacemaker; Z95.2 Presence of prosthetic heart valve; Z60.2 Problems related to living alone; Z91.013 Allergy to seafood; W06.XXXA Fall from bed, initial encounter; Y92.003 Bedroom of unspecified non-institutional (private) residence as the place of occurrence of the external cause
CPT/HCPCS: 36415; 70450; 70496; 70498; 71045; 72125; 78582; 80048; 80053; 80061; 82550; 83036; 84439; 84443; 84484; 85025; 85379; 85610; 85730; 87635; 90471; 90715; 90935; 93005; 93306; 99285